=== PATIENT | female | born 1945 | race Caucasian/White ===

== ENCOUNTER 2019-10-20 12:42 | Outpatient (CLI) | payer MEDICARE, OTHER, SELFPAY ==
--- NOTE | 2019-10-20 12:50 | CT_ITS ---
WS: [id number] CT CHEST WITH INTRAVENOUS CONTRAST HISTORY: LYMPHADENOPATHY TECHNIQUE: Contiguous 5 mm axial imaging performed on the thorax. Coronal and sagittal reformats are submitted. All CT scans at [facility] use at least one of these dose optimization techniq ues: automated exposure control; mA and/or kV adjustment per patient size (includes targeted exams wh ere dose is matched to clinical indication); or iterative reconstruction. CONTRAST: Omnipaque 300; 95 mL IV. DLP: 602.05 mGycm COMPARISON: 06/26/2019 Lungs and central airway: Mild pulmonary hyperinflation. Linear scar in the LEFT upper lobe and at th e RIGHT lung base. Again noted is a 6.9 mm noncalcified rounded soft tissue nodule at the LEFT lung b ase which is unchanged since 02/27/2019. No new nodule. Pleura: Normal. No pleural effusion. Heart and pericardium: Normal size heart. No pericardial effusion. Mediastinum and gonsalo: No enlarged lymph nodes. Largest lymph node at the RIGHT hilum measures 7.2 mm. Vessels: Moderate atherosclerosis thoracic aorta. No aneurysm. Pulmonary artery size is equal to the aorta. Chest wall and lower neck: No soft tissue masses. Upper abdomen: Small hiatal hernia. Prior cholecystectomy. The entire liver is not included on this s tudy but it does appear to be enlarged. No bile duct dilatation. Stable 8 mm nodule associated with t he LEFT adrenal gland. No change since 02/27/2019. Osseous structures: Increase in thoracic kyphosis. CT/CT chest w con* [id number] IMPRESSION: 1. Stable 6.9 mm noncalcified round soft tissue nodule at the LEFT lung base. No change since 02/27/2019. Recommend [address] follow-up to document co ntinued stability. 2. LEFT adrenal nodule measures 8 mm. With no history of malignancy statistica lly this is likely benign. 3. Chronic emphysema. 4. Moderate atherosclerosis aorta. 5. Prior cholecystectomy.
[2019-10-20 13:30] LABS: Blood Urea Nitrogen 10 mg/dL (8-23)
[2019-10-20] MEDS: iohexol 300 mg/mL 100 mL Btl IV (13:48)
== END 2019-10-20 12:43 | disposition home or self-care (01) ==
PROVIDERS: Internal Medicine Cardiovascular Disease; Family Provider Internal Medicine; PCP Internal Medicine; Referring Provider Internal Medicine; Visit Provider Thoracic Surgery (Cardiothoracic Vascular Surgery)
DX: J43.9 Emphysema, unspecified (principal); I70.0 Atherosclerosis of aorta; E27.9 Disorder of adrenal gland, unspecified; R59.1 Generalized enlarged lymph nodes; R91.1 Solitary pulmonary nodule; Z90.49 Acquired absence of other specified parts of digestive tract
CPT/HCPCS: 71260; 82565; 84520; Q9967

== ENCOUNTER 2019-10-29 08:41 | Outpatient (CLI) | payer MEDICARE, OTHER, SELFPAY ==
--- NOTE | 2019-10-29 09:00 | CT_ITS ---
WS: [id number] CTA ABDOMINAL AORTA WITH RUNOFF TECHNIQUE: Contrast enhanced CTA of the abdominal aorta with bilateral lower extremity runoff. Multip lanar reformatted images were obtained. MIP reformats were also reviewed. CLINICAL INFORMATION: Lifestyle limiting claudication, severely depressed SERGEY COMPARISON: None. DLP: 1313.[address] scans at [facility] use at least one of these dose optimization techniques: automat ed exposure control; mA and/or kV adjustment per patient size (includes targeted exams where dose is matched to clinical indication); or iterative reconstruction. FINDINGS: Moderate atheromatous disease abdominal aorta. Celiac and SMA are patent at the origins. Mild calcifi cation of the renal artery origins. Normal renal parenchymal enhancement. Cholecystectomy clips. Port al vein and splenic vein are patent. Adrenal glands are normal. Small esophageal hiatal hernia. Surgi estelle sutures at the cecum. Prior hysterectomy. RIGHT: Right common iliac artery is patent with moderate calcification. External and internal iliac a rteries are patent. Right common femoral artery is patent. Superficial femoral artery and deep femora l arteries are patent. No significant femoral artery stenosis. Popliteal artery is patent with no sig nificant stenosis. Normal 3 vessel runoff to the ankle. LEFT: Moderate calcification left common iliac artery which is patent. External iliac artery is paten t. Heavily calcified internal iliac artery which is occluded proximally with some flow distally. Comm on femoral artery is patent. Superficial femoral artery and deep femoral arteries are patent. Poplite al artery is patent. Normal 3 vessel runoff to the ankle. CT/CT angio abd aorta runof [id number] IMPRESSION: 1. Moderate calcification both common iliac arteries which remain patent. 2. No significant femoral artery or popliteal artery stenosis. 3. Normal 3 vessel runoff to the ankle bilaterally. 4. Left internal iliac artery is occluded proximally and reconstitutes distall y. 5. Normal caliber abdominal aorta with moderate atheromatous disease.
[2019-10-29] MEDS: iohexol 350 mg/mL 100 mL Btl IV (09:07)
== END 2019-10-29 08:42 | disposition home or self-care (01) ==
LOC: RADWPI 08:48
PROVIDERS: Family Provider Internal Medicine; PCP Internal Medicine; Visit Provider Internal Medicine Cardiovascular Disease
DX: I70.212 Atherosclerosis of native arteries of extremities with intermittent claudication, left leg (principal)
CPT/HCPCS: 75635; Q9967

== ENCOUNTER 2020-01-19 09:15 | Outpatient (CLI) | payer MEDICARE, OTHER, SELFPAY ==
--- NOTE | 2020-01-19 09:21 | MM_ITS ---
WS: [id number] BILATERAL DIGITAL DIAGNOSTIC MAMMOGRAM MAMMOGRAPHY WITH CAD CLINICAL INFORMATION: SUBCUTANEOUS NODULE OF BREAST. Bilateral breast lumps left 7:00 position and ri ght 9:00 position. Bilateral breast soreness. COMPARISON: September 07, 2019 TECHNIQUE: Bilateral CC, MLO, and ML views. FINDINGS: Scattered fibroglandular densities bilaterally. No mammographic abnormalities deep to the palpable marker left or right breast. A few tiny punctate c alcifications. Bilateral breast ultrasound is pending. ULTRASOUND BREAST BILATERAL TECHNIQUE: Ultrasound bilateral breast focused area of concern. CLINICAL INFORMATION: SUBCUTANEOUS NODULE OF BREAST FINDINGS: Ultrasound right breast at the 4 to 9:00 position. Ultrasound left breast at the 3 to 7:00 position. No evidence of pathologic mass or lesion. Normal underlying breast tissue. No lesions to target for b iopsy. MM/[place] [id number] IMPRESSION: BI-RADS: 2-Benign FOLLOW UP: 1 Year Follow-up Recommend return to annual screening mammography.
--- NOTE | 2020-01-19 09:33 | US_ITS ---
WS: [id number] BILATERAL DIGITAL DIAGNOSTIC MAMMOGRAM MAMMOGRAPHY WITH CAD CLINICAL INFORMATION: SUBCUTANEOUS NODULE OF BREAST. Bilateral breast lumps left 7:00 position and ri ght 9:00 position. Bilateral breast soreness. COMPARISON: September 07, 2019 TECHNIQUE: Bilateral CC, MLO, and ML views. FINDINGS: Scattered fibroglandular densities bilaterally. No mammographic abnormalities deep to the palpable marker left or right breast. A few tiny punctate c alcifications. Bilateral breast ultrasound is pending. ULTRASOUND BREAST BILATERAL TECHNIQUE: Ultrasound bilateral breast focused area of concern. CLINICAL INFORMATION: SUBCUTANEOUS NODULE OF BREAST FINDINGS: Ultrasound right breast at the 4 to 9:00 position. Ultrasound left breast at the 3 to 7:00 position. No evidence of pathologic mass or lesion. Normal underlying breast tissue. No lesions to target for b iopsy. US/US breast BI limited* [id number] IMPRESSION: BI-RADS: 2-Benign FOLLOW UP: 1 Year Follow-up Recommend return to annual screening mammography.
== END 2020-01-19 09:16 | disposition home or self-care (01) ==
LOC: RADSHAW 09:15
PROVIDERS: Family Provider Internal Medicine; PCP Internal Medicine; Visit Provider Internal Medicine
DX: N63.24 Unspecified lump in the left breast, lower inner quadrant (principal); N63.13 Unspecified lump in the right breast, lower outer quadrant
CPT/HCPCS: 76642; 77066

== ENCOUNTER 2020-07-31 18:57 | Inpatient (IN) | payer MEDICARE, OTHER, SELFPAY ==
[2020-07-31] VITALS (54 sets, daily range): BP systolic 61–125; BP diastolic 42–88; PULSE 55–168; RESP 15–46; TEMP 36.9–37.1; O2SAT 86–95; BMI 26.7
--- NOTE | 2020-07-31 19:35 | CTR_ITS ---
PROCEDURE INFORMATION: Exam: CT Head Without Contrast Exam date and time: 07/31/2020 10:54 PM Age: 74 years old Clinical indication: Pain; Headache not specified; Patient HX: Covid+ C/O COYLE TECHNIQUE: Imaging protocol: Computed tomography of the head without contrast. Radiation optimization: All CT scans at this facility use at least one of these dose optimization techniques: automated exposure control; mA and/or kV adjustment per patient size (includes targeted exams where dose is matched to clinical indication); or iterative reconstruction. COMPARISON: No relevant prior studies available. RADIATION DOSE METRICS: Total DLP (mGy-cm): 734.98 FINDINGS: Brain: Pontine couple small punctate calcifications. Diffuse mild cerebral age related volume loss. Mild patchy low attenuation in the white matter compatible with mild chronic small vessel ischemic disease. No midline shift, mass, fluid collection, or evidence of hemorrhage. Cerebral ventricles: Ventricular enlargement proportional to volume loss. Bones/joints: Unremarkable. No acute fracture. Paranasal sinuses: Visualized sinuses are unremarkable. No fluid levels. Mastoid air cells: Visualized mastoid air cells are well aerated. Soft tissues: Unremarkable. CT/CT head wo con* [id number] IMPRESSION: Mild involutional changes, no acute intracranial abnormality. Radiation Dose CTDIVOL = (mGy): DLP = 734.98 (mGy-cm)
--- NOTE | 2020-07-31 19:35 | XR_ITS ---
WS: [id number] Exam: XR chest 1V portable [id number] Date/Time of Exam: 07/31/2020 7:59 PM Reason For Exam: COVID+, hypoxia comparison 05/08/2019. There are patchy pneumonic infiltrates in both lower lung zone suspicious for pneumonia. Normal heart size. The mediastinum and bony thorax are intact. The lungs are hyperinflated which may indicate POLE CLASSIFIER D. There are superimposed chronic changes also noted in the lower lung zones. XR/XR chest 1V portable [id number] IMPRESSION: 1. Pneumonic infiltrates in the bilateral lower lung zones with superimposed ch ronic changes. 2. Pulmonary hyperinflation which may indicate COPD.
[2020-07-31 19:54] LABS: Basophils % 0.2 %; Hematocrit 38.6 % (37.0-47.0); Hemoglobin 12.7 g/dL (11.5-15.3); Lymphocytes # 0.6 10^3/uL (0.8-4.8); Lymphocytes % 11.6 %; Mean Corpuscular HGB Conc 32.9 g/dL (30.0-36.0); Mean Corpuscular Hemoglobin 29.4 pg (28.0-34.0); Mean Corpuscular Volume 89.4 fL (81-99); Mean Platelet Volume 11.5 fL (7.4-10.4); Monocytes # 0.2 10^3/uL (0.2-0.9); Monocytes % 2.8 %; Neutrophils # 4.61 10^3/uL (1.8-7.7); Nucleated Red Blood Cells % 0 %; Platelet Count 144 10^3/cmm (130-400); Red Blood Count 4.32 10^6/uL (4.1-5.3); Red Cell Distribution Width 14.1 % (12.1-15.1); White Blood Count 5.4 10^3/uL (4.0-10.0)
[2020-07-31 20:00] LABS: Fibrinogen 513 mg/dL (174-498)
[2020-07-31 20:03] LABS: D Dimer 1.25 ug/mIFEU (0-0.59)
[2020-07-31 20:06] LABS: Lactic Sepsis W/Reflex 1.3 mmol/L (0.5-2.2)
[2020-07-31 20:08] LABS: Troponin T (5th) Once 28 ng/L (0-10)
[2020-07-31 20:15] LABS: Procalcitonin 0.36 ng/mL (0-0.5)
[2020-07-31] MEDS: sodium chloride 0.9% 1,000 ML 999 ML IV ×2 (20:20→20:36)
[2020-07-31 20:26] LABS: Alanine Aminotransferase 127 U/L (0-33); Albumin Level 3.3 g/dL (3.5-5.2); Alkaline Phosphatase 140 IU/L (35-105); Aspartate Amino Transferase 147 U/L (0-32); Blood Urea Nitrogen 28 mg/dL (8-23); C Reactive Protein 35.1 mg/L (0.0-4.9); Calcium 7.3 mg/dL (8.5-10.5); Carbon Dioxide 14 mmol/L (22-29); Chloride 98 mmol/L (98-107); Globulin 2.4 g/dL (1.3-4.6); Glucose 125 mg/dL (65-115); Lactate Dehydrogenase 445 U/L (135-214); Osmolality Calculated 283 mOsm/kg (285-295); Sodium 133 mmol/L (136-145); Total Bilirubin 0.3 mg/dL (0.15-1.2); Total Protein 5.7 g/dL (6.6-8.7)
[2020-07-31 20:57] LABS: Urine Color Yellow (Yellow); pH Urine 5 (5-7)
[2020-07-31 20:58] LABS: Bilirubin Urine Neg (Negative); Blood Urine Trace (Negative); Glucose Urine UA Norm (Normal); Ketones Urine Negative (Negative); Leukocyte Esterase Urine Trace (Negative); Nitrate Urine Negative (Negative); Protein Urine Neg (Negative); Urobilinogen Urine Norm (Negative)
[2020-07-31 20:59] LABS: Add Urine Culture? No; Bacteria Urine 3+ /hpf; Hyaline Casts Urine 0-4 /lpf; Mucus Urine 1+ /hpf; Squamous Epithelial Cell Urine 25-40 /hpf (0-5); WBC Urine 25-40 /hpf (0-5)
[2020-07-31] MEDS: calcium gluconate 0.1 gm/mL 10% SDV 10mL 1 GM IVP (21:20)
[2020-07-31] MEDS: sodium chloride 0.9% 1,000 ML 100 ML IV (21:35)
--- NOTE | 2020-07-31 21:40 | PM.HP ---
Providers/Chief Complaint Primary Care Provider: Roge Escobar DO Chief Complaint: COVID History of Present Illness Emili Bueno is a 74 year old female who was recently started on cilostazol for intermittent claudication symptoms, tested positive for Covid on Saturday came in with worsening of fatigue. Patient is stating that for last 1 week she has been experiencing loose stools, 2-3 episodes of emesis, her p.o. intake has been decreasing, she is feeling extremely lethargic and fatigued with some dyspnea on exertion. She has not checked her pulse ox at home, she is denying fever, chest pain, dysuria. She has been compliant with her medications including lisinopril in last 1 week despite diarrhea vomiting and low p.o. intake. Because of worsening of her symptoms she decided to come to the hospital for further evaluation. When EMS evaluated her she was 84% on room air, she was saturating well 4 L nasal cannula 94% when she arrived in the ER, initially she was hypotensive with tachyarrhythmia, atrial fibrillation with RVR, AV edis blocking agent which were given via IV did not help her heart rate, decision was made to cardiovert her, she was cardioverted in the ER by Dr. Mahoney, post cardioversion heart rate dropped to 60s, she still hypotensive with low 90s, she is saturating well on 4 L nasal cannula at the time of my interview, she is awake, alert, A. fib slow ventricular response alternating with sinus bradycardia, does not have previous history of sick sinus syndrome. Diagnostics in the ER revealed BNP 584, abnormal transaminases, high inflammatory markers, normal procalcitonin, x-ray shows bilateral infiltrates, normal lactic acid, CHARLY, hyponatremia, hypokalemia I will check ketones for metabolic acidosis, blood sugar 125, high D-dimer Review of Systems Const: Reports: chills, body aches, change in appetite, fatigue and malaise Eyes: Denies: change in vision ENMT: Denies: throat pain Card: Reports: dyspnea on exertion; Denies: chest pain Resp: Reports: dyspnea and non-productive cough GI: Reports: nausea and diarrhea; Denies: abdominal pain : Denies: flank pain or difficulty voiding Musc: Denies: neck pain Skin/Breast: Denies: rash Neuro: Denies: headache(s) or weakness in extremities Psych: Reports: anxiety Endo: Denies: polyuria Alberto/Lymph: Denies: easy bruising All/Imm: Denies: urticaria Medications/Allergies Home Medications Medication Instructions Recorded Confirmed Last Taken Type budesonide-formoterol HFA 80 2 puff INHALATION BID 10/12/19 03/11/20 Unknown History mcg-4.5 mcg/actuation aerosol inhaler colestipol 1 gram tablet 1 gm PO ONCE 10/12/19 03/11/20 Unknown History lisinopril 40 mg tablet 40 mg PO ONCE 10/12/19 03/11/20 Unknown History methimazole 5 mg tablet 5 mg PO ONCE 10/12/19 03/11/20 Unknown History montelukast 10 mg tablet 10 mg PO ONCE 10/12/19 03/11/20 Unknown History cilostazol 50 mg tablet 50 mg PO BID 10/15/19 03/11/20 Unknown History Allergies Allergy/AdvReac Type Severity Reaction Status Date / Time No Known Allergies Allergy Unverified 07/31/20 19:07 PFSH Acute PFSH: Medical History Atherosclerosis of leg with intermittent claudication Cholecystectomy planned COPD (chronic obstructive pulmonary disease) FHx: cholecystectomy Hypertension Hypertension Irritable bowel syndrome Lymphadenopathy Nicotine dependence PVD (peripheral vascular disease) Moderate as per SERGEY, on cilostazol, medical manage Thyroid disorder On methimazole Surgical History H/O: hysterectomy History of gastric surgery Family History Other Dementia Diabetes Hypertension Social History Smoking and tobacco status: current every day smoker Alcohol intake: never Substance/Drug Use: never Housing: House Vitals/I&O/Wt Last Vital Signs Temp 98.8 F 07/31/20 19:02 Pulse 168 H 07/31/20 21:25 Resp 34 H 07/31/20 21:25 BP 104/55 07/31/20 21:25 Pulse Ox 94 07/31/20 21:25 07/31/20 07/31/20 07/31/20 06:59 14:59 22:59 Intake Total 1000 / 1000 Balance 1000 / 1000 Weight last 48 hrs Weight 70.76 kg Physical Exam Narrative: EXAM NARRATIVE: Appears comfortable, laying flat in her bed Elderly female Appears dehydrated Saturating well on 4 L cannula I have titrated down to 2 L No acute respiratory distress Sinus bradycardia alternating with variable rhythm heart rate in 60s Systolic blood pressure in low 90s Awake alert oriented x3 GCS 15, no neurological deficit Abdomen soft, nontender, no abdominal pain Lower extremity nonpitting edema left leg greater than right Skin does not show any ischemia gangrene or ulcer Appropriate mood and affect Data : 07/31/20 19:16 07/31/20 19:16 A&P Assessment and plan (1) Tachyarrhythmia: Status: Acute (2) Atrial fibrillation with RVR: Status: Acute (3) Hypotensive episode: Status: Acute (4) CHARLY (acute kidney injury): Status: Acute (5) Metabolic acidosis: Status: Acute (6) Dehydration: Status: Acute (7) Hypokalemia: Status: Acute (8) Hyponatremia: Status: Acute Additional A&P Information Acute onset A. fib with RVR Status post electrical cardioversion x1 in the ER with conversion to A. fib with slow ventricular response alternating with sinus bradycardia No active chest pain, troponin 28 Current heart rate in the 60s, current systolic blood pressure in low 90s Cardizem drip has been turned off Check TSH, mag chadvasc 4 hasbled 2 Monitor for sick sinus syndrome, telemetry monitoring, I would start heparin drip for anticoagulation Echo in the morning Acute hypoxic respiratory failure due to COVID-19 Start dexamethasone and remdesivir Currently I have titrated down her nasal cannula oxygenation from 4 L to 2 L No acute respiratory distress, chest x-ray showing bilateral infiltrates right greater than left, procalcitonin normal, avoid antibiotics for now Abnormal D-dimer Considering tachyarrhythmia and COVID-19 infection I would start her on heparin drip, not a candidate to be on Eliquis because of high creatinine I concern is high for a pulmonary embolism We will check venous Dopplers in the morning Hypokalemic, hyponatremic acidosis Dehydration High anion gap acidosis, lactic acid normal, will check ketones level Potassium repleted Normal saline maintenance rate overnight Abnormal BMP Clinically patient looks dehydrated, abnormal transaminases We will check echo in the morning to rule out congestive heart failure Currently I am starting fluids because of dehydration Abnormal transaminases could be secondary to COVID-19 infection Hyperthyroidism: Patient is taking methimazole 5 mg daily which I would hold for now, check free T4 Full code Cardiac diet DVT prophylaxis not needed currently on heparin drip Attestations Medical Necessity Statement*: Anticipating stay in the hospital cross more than 2 midnights secondary to tachyarrhythmia and COVID-19 worsening symptoms Time Spent in Patient Care: (>than 50% of time spent in counselling and/or direct pt care on unit). 40mins Coding Level of Care Code Acute Financial Aid Coordinator for Chg Fwd Diagnoses Tachyarrhythmia R00.0 Atrial fibrillation with RVR I48.91 Hypotensive episode I95.9 CHARLY (acute kidney injury) N17.9 Metabolic acidosis E87.2 Dehydration E86.0 Hypokalemia E87.6 Hyponatremia E87.1
[2020-07-31] MEDS: midazolam 1 mg/mL INJ 2 mL IVP (21:48)
--- NOTE | 2020-07-31 22:06 | PC.NURSE ---
PATIENT FAMILY UPDATED ON PATIENT CARE PLAN.
[2020-07-31 22:40] LABS: NT Pro B Type Natriuretic Pept 584 pg/mL (0-125)
--- NOTE | 2020-07-31 23:47 | W.ED.COVID ---
HPI - COVID General: Chief Complaint: COVID symptoms Stated Complaint: COVID+/SOB Time Seen by Provider: 07/31/20 19:12 Source: patient Mode of arrival: EMS Limitations: no limitations Triage information: Has fever, cough or shortness of breath. Exposure to COVID + person last 14 days History of Present Illness: HPI Narrative: Patient is a 74-year-old female who tested positive for COVID-19 about 7 days ago. The patient states that she has been doing well since and her only real complaint had been generalized weakness. Today she had a headache in the occipital region as well as a generalized weakness. When she was checking her oxygen saturation oxygen saturation was in the 80s. She still did not feel short of breath with these. She then called for an ambulance and the EMS crew said that her oxygen saturation was 86% on room air when they arrived. She was therefore brought here for evaluation. MD complaint: known COVID positive COVID 19 common symptoms: positive cough, non-productive cough, dyspnea (mild), fatigue, headache(s) and nausea; negative fever(s), chills, productive cough, body aches, loss of sense of smell and/or taste, throat pain, nasal congestion, vomiting or diarrhea COVID 19 other sytmptoms: positive requiring oxygen (now); negative chest pressure, chest pain, pleuritic pain, respiratory distress, cyanosis, lethargy, confusion or new neurological complaints Onset (ago): week(s) (1) Pertinent comorbid conditions: hypertension and COPD/respiratory disease Treatment prior to arrival: oxygen COVID Results: No Data to Display Review of Systems General: Reports: 10 or more systems reviewed and unremarkable except in HPI and below Const: Reports: fatigue; Denies: fever(s), chills or body aches Eyes: Denies: change in vision or blurry vision ENMT: Denies: throat pain or nasal congestion Card: Denies: chest pain Resp: Reports: dyspnea (mild) and non-productive cough; Denies: productive cough GI: Reports: nausea; Denies: vomiting or diarrhea : Denies: flank pain, difficulty voiding, dysuria, urinary frequency, urinary urgency or urinary hesitancy Musc: Denies: neck pain, back pain or extremity swelling Skin/Breast: Denies: rash, pruritus or erythema Neuro: Reports: headache(s); Denies: confusion Endo: Denies: polyuria, polydipsia or tired all the time PFSH ED PFSH: Medical History (Reviewed 07/31/20 @ 23:53 by Nhung Mahoney MD[place] [facility] [place] Atherosclerosis of leg with intermittent claudication Cholecystectomy planned COPD (chronic obstructive pulmonary disease) FHx: cholecystectomy Hypertension Hypertension Irritable bowel syndrome Lymphadenopathy Nicotine dependence PVD (peripheral vascular disease) Moderate as per SERGEY, on cilostazol, medical manage Thyroid disorder On methimazole Surgical History (Reviewed 07/31/20 @ 23:53 by hNung Mahoney MD, [facility] [place] H/O: hysterectomy History of gastric surgery Family History (Reviewed 07/31/20 @ 23:53 by Nhung Mahoney MD[place] [facility] [place] Other Dementia Diabetes Hypertension Social History (Reviewed 07/31/20 @ 23:53 by Nhung Mahoney MD, [facility] [place] Smoking and tobacco status: current every day smoker Alcohol intake: never Substance/Drug Use: never Housing: House Physical Exam Const: COMMON NORMALS: no acute distress, average body habitus, patient oriented x3, no limitations, healthy appearing, alert and well nourished HENMT: COMMON NORMALS: normocephalic, atraumatic and moist oral mucous membranes HEAD & SCALP: normocephalic and atraumatic Eye: COMMON NORMALS: Equal, round and reactive pupils present, EOMs intact bilaterally, conjunctivae normal and no scleral icterus CONJUNCTIVA: Yes conjunctivae normal PUPIL: Yes Equal, round and reactive pupils present Neck/C-Spine: COMMON NORMALS: full ROM, supple, no meningeal signs, no JVD and No carotid bruits Resp: COMMON NORMALS: normal respiratory effort, No retractions, No use of accessory muscles, clear to auscultation bilaterally and percussion normal AUSCULTATION: clear to auscultation bilaterally PERCUSSION: percussion normal Cardio: COMMON NORMALS: no JVD, regular rate, regular rhythm, S1 normal heart sound present, S2 normal heart sound present, No gallops present (Cardio), No clicks present (Cardio), No murmurs present (Cardio), No rub (Cardio) and Peripheral pulses 2+ throughout RATE: regular rate RHYTHM: regular rhythm HEART SOUNDS: S1 normal heart sound present and S2 normal heart sound present PERIPHERAL PULSES: Peripheral pulses 2+ throughout GI: COMMON NORMALS: Normal to inspection, nondistended, normoactive bowel sounds present, Soft to palpation, non-tender, No hepatosplenomegaly present, no masses and no bruits PALPATION: Yes Soft to palpation and Yes No hepatosplenomegaly present Extremity: COMMON NORMALS: normal to inspection, full ROM, capillary refill normal, no calf tenderness and no pedal edema Neuro: COMMON NORMALS: patient oriented x3 SENSORIUM/ORIENTATION: Yes alert MENINGEAL SIGNS: Yes no meningeal signs Skin: COMMON NORMALS: no rashes or lesions noted, no wounds, turgor normal, no jaundice, no petechiae and no mottling GENERAL SKIN EXAM: no rashes or lesions noted and turgor normal Procedures Procedural Sedation Indication: other (Cardioversion) Preparation: media marketing coordinator applied, pulse oximeter, supplemental O2 applied, suction/airway equipment at bedside and IV secured Midazolam: IV Midazolam dose (mg): 1 IV Etomidate dose (mg): 7 Patient Tolerated Procedure: well and no complications Complications: none Additional Comments: No complications Course ED course: 74-year-old female patient who was brought into the emergency department secondary to hypoxia from COVID-19 infection. While in the emergency department she went into A. fib with RVR and became hypotensive. She does not have a prior history of A. fib. She did not respond to bolus and continuous infusion of diltiazem and because of persistent hypotension she was electrically cardioverted with a single synchronized shock at 150 J. She was premedicated with 7 mg of etomidate and 1 mg of midazolam. Cardioversion was successful. The patient was admitted to the viral ICU for further evaluation and management. Consultations: Consultation #1: Dr. Jackson, hospitalist. He kindly accepted the patient to his [facility]. Vital Signs: Vital signs: Vital Signs Temperature 98.8 F 07/31/20 19:02 Pulse Rate 65 07/31/20 22:46 Respiratory Rate 17 07/31/20 22:46 Blood Pressure 106/51 07/31/20 22:46 Pulse Oximetry 93 07/31/20 22:46 MDM - COVID MDM Narrative Medical decision making narrative: 74-year-old female patient with a recent diagnosis of COVID-19 infection who presented to the emergency department with complaints of hypoxia. In the emergency department she went into A. fib with RVR that was resistant to multiple doses of diltiazem as well as infusion of diltiazem. Because she was hypotensive persistently a decision was made to cardiovert her and she was successfully cardioverted. Patient is admitted to the viral ICU for further evaluation and management. Medical Records Attestation: I reviewed the patient's medical records. Lab Data Attestation: I reviewed the patient's lab results. Result diagrams: 07/31/20 19:16 07/31/20 19:16 Labs: Lab Results 07/31/20 07/31/20 07/31/20 Range/Units 19:16 19:16 19:16 WBC 5.4 (4.0-10.0) 10^3/uL RBC 4.32 (4.1-5.3) 10^6/uL Hgb 12.7 (11.5-15.3) g/dL Hct 38.6 (37.0-47.0) % MCV 89.4 (81-99) fL MCH 29.4 (28.0-34.0) pg MCHC 32.9 (30.0-36.0) g/dL RDW 14.1 (12.1-15.1) % Plt Count 144 (130-400) 10^3/cmm MPV 11.5 H (7.4-10.4) fL Neut % (Auto) 85.0 % Lymph % (Auto) 11.6 % Marin % (Auto) 2.8 % Eos % (Auto) 0.0 % Baso % (Auto) 0.2 % Neut # (Auto) 4.61 (1.8-7.7) 10^3/uL Lymph # (Auto) 0.6 L (0.8-4.8) 10^3/uL Marin # (Auto) 0.2 (0.2-0.9) 10^3/uL Eos # (Auto) 0.0 (0.0-0.8) 10^3/uL Baso # (Auto) 0.0 (0.0-0.1) 10^3/uL Nucleated RBC % (auto) 0 % Nucleated RBCs # 0.0 /100WBC Fibrinogen 513 H (174-498) mg/dL D-Dimer 1.25 H (0-0.59) ug/mIFEU Sodium 133 L (136-145) mmol/L Potassium 3.0 L (3.5-5.1) mmol/L Chloride 98 (98-107) mmol/L Carbon Dioxide 14 L (22-29) mmol/L Anion Gap 24.0 H (5-19) BUN 28 H (8-23) mg/dL Creatinine 1.9 H (0.5-0.9) mg/dL GFR Calculation Not Reportable Glucose 125 H (65-115) mg/dL Calculated Osmolality 283 L (285-295) mOsm/kg Lactic Acid (0.5-2.2) mmol/L Calcium 7.3 L (8.5-10.5) mg/dL Total Bilirubin 0.3 (0.15-1.2) mg/dL AST 147 H (0-32) U/L ALT 127 H (0-33) U/L Alkaline Phosphatase 140 H (35-105) IU/L Lactate Dehydrogenase 445 H (135-214) U/L Troponin T Gen 5 ng/L (0-10) ng/L C-Reactive Protein 35.1 H (0.0-4.9) mg/L NT-Pro-B Natriuret Pep (0-125) pg/mL Total Protein 5.7 L (6.6-8.7) g/dL Albumin 3.3 L (3.5-5.2) g/dL Globulin 2.4 (1.3-4.6) g/dL Procalcitonin 0.36 (0-0.5) ng/mL Urine Color (Yellow) Urine Appearance (CLEAR) Urine pH (5-7) Ur Specific [place] (1.005-1.030) Urine Protein (Negative) Urine Glucose (UA) (Normal) Urine Ketones (Negative) Urine Blood (Negative) Urine Nitrate (Negative) Urine Bilirubin (Negative) Urine Urobilinogen (Negative) mg/dL Ur Leukocyte Esterase (Negative) Urine RBC (0-2) /hpf Urine WBC (0-5) /hpf Ur Squamous Epith Cells (0-5) /hpf Amorphous Sediment Urine Bacteria (NONE) /hpf Hyaline Casts /lpf Urine Mucus /hpf 07/31/20 07/31/20 07/31/20 Range/Units 19:16 19:16 19:16 WBC (4.0-10.0) 10^3/uL RBC (4.1-5.3) 10^6/uL Hgb (11.5-15.3) g/dL Hct (37.0-47.0) % MCV (81-99) fL MCH (28.0-34.0) pg MCHC (30.0-36.0) g/dL RDW (12.1-15.1) % Plt Count (130-400) 10^3/cmm MPV (7.4-10.4) fL Neut % (Auto) % Lymph % (Auto) % Marin % (Auto) % Eos % (Auto) % Baso % (Auto) % Neut # (Auto) (1.8-7.7) 10^3/uL Lymph # (Auto) (0.8-4.8) 10^3/uL Marin # (Auto) (0.2-0.9) 10^3/uL Eos # (Auto) (0.0-0.8) 10^3/uL Baso # (Auto) (0.0-0.1) 10^3/uL Nucleated RBC % (auto) % Nucleated RBCs # /100WBC Fibrinogen (174-498) mg/dL D-Dimer (0-0.59) ug/mIFEU Sodium (136-145) mmol/L Potassium (3.5-5.1) mmol/L Chloride (98-107) mmol/L Carbon Dioxide (22-29) mmol/L Anion Gap (5-19) BUN (8-23) mg/dL Creatinine (0.5-0.9) mg/dL GFR Calculation Glucose (65-115) mg/dL Calculated Osmolality (285-295) mOsm/kg Lactic Acid 1.3 (0.5-2.2) mmol/L Calcium (8.5-10.5) mg/dL Total Bilirubin (0.15-1.2) mg/dL AST (0-32) U/L ALT (0-33) U/L Alkaline Phosphatase (35-105) IU/L Lactate Dehydrogenase (135-214) U/L Troponin T Gen 5 ng/L 28 H (0-10) ng/L C-Reactive Protein (0.0-4.9) mg/L NT-Pro-B Natriuret Pep 584 H (0-125) pg/mL Total Protein (6.6-8.7) g/dL Albumin (3.5-5.2) g/dL Globulin (1.3-4.6) g/dL Procalcitonin (0-0.5) ng/mL Urine Color (Yellow) Urine Appearance (CLEAR) Urine pH (5-7) Ur Specific [place] (1.005-1.030) Urine Protein (Negative) Urine Glucose (UA) (Normal) Urine Ketones (Negative) Urine Blood (Negative) Urine Nitrate (Negative) Urine Bilirubin (Negative) Urine Urobilinogen (Negative) mg/dL Ur Leukocyte Esterase (Negative) Urine RBC (0-2) /hpf Urine WBC (0-5) /hpf Ur Squamous Epith Cells (0-5) /hpf Amorphous Sediment Urine Bacteria (NONE) /hpf Hyaline Casts /lpf Urine Mucus /hpf 10/25/20 Range/Units 20:41 WBC (4.0-10.0) 10^3/uL RBC (4.1-5.3) 10^6/uL Hgb (11.5-15.3) g/dL Hct (37.0-47.0) % MCV (81-99) fL MCH (28.0-34.0) pg MCHC (30.0-36.0) g/dL RDW (12.1-15.1) % Plt Count (130-400) 10^3/cmm MPV (7.4-10.4) fL Neut % (Auto) % Lymph % (Auto) % Marin % (Auto) % Eos % (Auto) % Baso % (Auto) % Neut # (Auto) (1.8-7.7) 10^3/uL Lymph # (Auto) (0.8-4.8) 10^3/uL Marin # (Auto) (0.2-0.9) 10^3/uL Eos # (Auto) (0.0-0.8) 10^3/uL Baso # (Auto) (0.0-0.1) 10^3/uL Nucleated RBC % (auto) % Nucleated RBCs # /100WBC Fibrinogen (174-498) mg/dL D-Dimer (0-0.59) ug/mIFEU Sodium (136-145) mmol/L Potassium (3.5-5.1) mmol/L Chloride (98-107) mmol/L Carbon Dioxide (22-29) mmol/L Anion Gap (5-19) BUN (8-23) mg/dL Creatinine (0.5-0.9) mg/dL GFR Calculation Glucose (65-115) mg/dL Calculated Osmolality (285-295) mOsm/kg Lactic Acid (0.5-2.2) mmol/L Calcium (8.5-10.5) mg/dL Total Bilirubin (0.15-1.2) mg/dL AST (0-32) U/L ALT (0-33) U/L Alkaline Phosphatase (35-105) IU/L Lactate Dehydrogenase (135-214) U/L Troponin T Gen 5 ng/L (0-10) ng/L C-Reactive Protein (0.0-4.9) mg/L NT-Pro-B Natriuret Pep (0-125) pg/mL Total Protein (6.6-8.7) g/dL Albumin (3.5-5.2) g/dL Globulin (1.3-4.6) g/dL Procalcitonin (0-0.5) ng/mL Urine Color Yellow (Yellow) Urine Appearance Sl cloudy A (CLEAR) Urine pH 5 (5-7) Ur Specific [place] 1.010 (1.005-1.030) Urine Protein Neg (Negative) Urine Glucose (UA) Norm (Normal) Urine Ketones Negative (Negative) Urine Blood Trace H (Negative) Urine Nitrate Negative (Negative) Urine Bilirubin Neg (Negative) Urine Urobilinogen Norm (Negative) mg/dL Ur Leukocyte Esterase Trace H (Negative) Urine RBC 5-10 H (0-2) /hpf Urine WBC 25-40 H (0-5) /hpf Ur Squamous Epith Cells 25-40 H (0-5) /hpf Amorphous Sediment Not Reportable Urine Bacteria 3+ H (NONE) /hpf Hyaline Casts 0-4 H /lpf Urine Mucus 1+ /hpf COVID Results: No Data to Display Imaging Data CT Head: Attestation: I personally reviewed and interpreted this imaging study as follows: Radiologist's impression: [address] [address] [address] Scan Report Signed Patient: Emili Buenosapna #: [id number] : 6Acct#:[id number] Age/Sex: 74 / FADM Date: 07/31/20 [facility] [address]: Jaison Jackson MD Ordering Provider/Ordering MD: Nhung Mahoney MD[place] [facility] [place] Date of Service: 07/31/20 Procedure(s): CT head wo con* [id number] Accession Number(s): [id number] Report Number: [id number] PROCEDURE INFORMATION: Exam: CT Head Without Contrast Exam date and time: 07/31/2020 10:54 PM Age: 74 years old Clinical indication: Pain; Headache not specified; Patient HX: Covid+ C/O COYLE TECHNIQUE: Imaging protocol: Computed tomography of the head without contrast. Radiation optimization: All CT scans at this facility use at least one of these dose optimization techniques: automated exposure control; mA and/or kV adjustment per patient size (includes targeted exams where dose is matched to clinical indication); or iterative reconstruction. COMPARISON: No relevant prior studies available. RADIATION DOSE METRICS: Total DLP (mGy-cm): 734.98 FINDINGS: Brain: Pontine couple small punctate calcifications. Diffuse mild cerebral age related volume loss. Mild patchy low attenuation in the white matter compatible with mild chronic small vessel ischemic disease. No midline shift, mass, fluid collection, or evidence of hemorrhage. Cerebral ventricles: Ventricular enlargement proportional to volume loss. Bones/joints: Unremarkable. No acute fracture. Paranasal sinuses: Visualized sinuses are unremarkable. No fluid levels. Mastoid air cells: Visualized mastoid air cells are well aerated. Soft tissues: Unremarkable. CT/CT head wo con* [id number] IMPRESSION: Mild involutional changes, no acute intracranial abnormality. Radiation Dose CTDIVOL = (mGy): DLP = 734.98 (mGy-cm) Dictated By:Orville Redmond MD Signed By:Orville Redmond MDSigned Date/Time:07/31/202305 DD/ 04 CXR: Attestation: I personally reviewed and interpreted this imaging study as follows: My impression: Bilateral infiltrates EKG Data EKG 1: Attestation: I personally reviewed and interpreted this EKG as follows: EKG interpretation date: 07/31/20 EKG interpretation time: 20:02 Prior EKG tracings: not available for review Interpretation: Atrial fibrillation with RVR. Heart rate [address] depressions in V3, V4, V5, V6. Q waves in leads II, III and aVF. EKG 2: Attestation: I personally reviewed and interpreted this EKG as follows: EKG interpretation date: 07/31/20 EKG interpretation time: 21:54 Prior EKG tracings: available for review Interpretation: Sinus rhythm with marked sinus arrhythmia. Most of the rhythm though is atrial fibrillation. Heart rate [address] depression in leads V4 V5. This is a post cardioversion EKG. Critical Care Time Critical Care Time: Critical Care Time: Yes Total Critical Care Time: 60 Attestation: This case had a high probability of a clinically significant, sudden, or life threatening deterioration of this patient's condition which required my full and direct attention, intervention and personal management. Discharge Plan Discharge Patient Disposition: Admitted As Inpatient Admit Provider: Jaison Jackson Clinical Impression: Atrial fibrillation with RVR, CHARLY (acute kidney injury), Pneumonia due to 2019 novel coronavirus, Hypocalcemia, Atrial fibrillation, new onset Condition: Stable Interventions: ED Discharge Assessment Last Done: 07/31/20 22:46 ED Charges Last Done: 07/31/20 22:46 Discharge Date/Time: 07/31/20 23:05 Coding Level of Care Code ED Bedspread Cutter Hand for Janessa Torres
[2020-08-01] VITALS (227 sets, daily range): BP systolic 85–160; BP diastolic 38–84; PULSE 53–104; RESP 3–41; TEMP 36.6–37.8; O2SAT 86–100
[2020-08-01 00:01] LABS: Ketone (Acetest) Serum Negative (Negative)
[2020-08-01 00:12] LABS: SARS Covid-2 Antigen Positive (Negative)
[2020-08-01] MEDS: sodium chlor 0.9% + KCl 20 mEq 20 MEQ/1,000 ML BAG 30 MEQ IV ×2 (00:45→08:31)
[2020-08-01] MEDS: heparin 5,000 unit/mL INJ 1 mL IV (00:46)
[2020-08-01] MEDS: heparin drip 25,000 UNIT/500 ML PREMIX 20 UNIT IV (00:49)
[2020-08-01 01:21] LABS: Troponin T (5th) Once 34 ng/L (0-10)
[2020-08-01] MEDS: albuterol 8 gm MDI 2 PUFF INHALATION ×4 (03:00→16:06)
[2020-08-01 04:31] LABS: Basophils % 0.2 %; Hematocrit 38.1 % (37.0-47.0); Hemoglobin 12.2 g/dL (11.5-15.3); Lymphocytes # 0.9 10^3/uL (0.8-4.8); Lymphocytes % 15.7 %; Mean Corpuscular Hemoglobin 29.4 pg (28.0-34.0); Mean Corpuscular Volume 91.8 fL (81-99); Mean Platelet Volume 12.2 fL (7.4-10.4); Monocytes # 0.2 10^3/uL (0.2-0.9); Neutrophils # 4.57 10^3/uL (1.8-7.7); Neutrophils % 80.6 %; Nucleated Red Blood Cells % 0 %; Platelet Count 147 10^3/cmm (130-400); Red Blood Count 4.15 10^6/uL (4.1-5.3); Red Cell Distribution Width 14.4 % (12.1-15.1); White Blood Count 5.7 10^3/uL (4.0-10.0)
[2020-08-01 05:19] LABS: Slide Review Slide Review Perform
[2020-08-01 06:24] LABS: Blood Urea Nitrogen 24 mg/dL (8-23); C Reactive Protein 41.7 mg/L (0.0-4.9); Calcium 7.7 mg/dL (8.5-10.5); Carbon Dioxide 19 mmol/L (22-29); Chloride 106 mmol/L (98-107); Glucose 102 mg/dL (65-115); Osmolality Calculated 292 mOsm/kg (285-295); Sodium 139 mmol/L (136-145); Thyroid Stimulating Hormone 0.04 uIU/mL (0.27-4.20)
[2020-08-01 06:25] LABS: Anion Gap 17.2 (5-19); Free T4 Free Thyroxine 1.34 ng/dL (0.82-1.77); Potassium 3.2 mmol/L (3.5-5.1)
--- NOTE | 2020-08-01 07:00 | USCV_ITS ---
Emili Buneo Age: 74 Gender: F : 1945 Exam Date: 08/01/2020 06:20 Ordering Phys: Jaison Jackson MD Technologist: Tono Blakely Exam Location: [facility] [place] Indication: CHF BP: 122 / 84 HR: 67 Rhythm: Sinus Technical Quality: Adequate MEASUREMENTS (Male / Female) Normal Values 2D ECHO LV Diastolic Diameter PLAX 3.6 cm 4.2 - 5.9 / 3.9 - 5.3 cm LV Systolic Diameter PLAX 2.2 cm IVS Diastolic Thickness 1.2 cm 0.6 - 1.0 / 0.6 - 0.9 cm IVS Systolic Thickness 1.1 cm LVPW Diastolic Thickness 1.0 cm 0.6 - 1.0 / 0.6 - 0.9 cm LVPW Systolic Thickness 1.0 cm LVOT Diameter 2.1 cm LV Ejection Fraction 2D Teich 72.1 % LV Ejection Fraction MOD 2C 52.5 % LV Ejection Fraction 2C AL 50.6 % LA Diameter 3.1 cm LA Width 3.3 cm LA Height 5.0 cm RA Width 3.7 cm RA Height 4.1 cm Aorta at Sinotubular Diameter 1.3 cm M-MODE LV Diastolic Diameter MM 4.8 cm 4.2 - 5.9 / 3.9 - 5.3 cm LV Systolic Diameter MM 2.7 cm LV Ejection Fraction MM Teich 75.3 % IVS Diastolic Thickness MM 1.1 cm 0.6 - 1.0 / 0.6 - 0.9 cm IVS Systolic Thickness MM 1.6 cm LVPW Diastolic Thickness MM 1.2 cm 0.6 - 1.0 / 0.6 - 0.9 cm LVPW Systolic Thickness MM 1.7 cm RV Diastolic Diameter MM 2.1 cm Aortic Annulus Diameter 3.1 cm LA Ao Ratio MM 1.2 DOPPLER AV Peak Velocity 294.0 cm/s LVOT Peak Velocity 119.0 cm/s AV Area Cont Eq vti 1.7 cm squared AV Area Cont Eq pk 1.3 cm squared MV Area PHT 5.0 cm squared Mitral E to A Ratio 1.0 MV E' Velocity 56.0 cm/s Mitral E to MV E' Ratio 7.3 Mitral E to LV E' Lateral Ratio 8.2 Mitral E to LV E' Septal Ratio 6.6 TR Peak Velocity 257.0 cm/s TR Peak Gradient 26.4 mmHg TV Peak E Velocity 114.0 cm/s Right Atrial Pressure 3.0 mmHg Pulmonary Artery Systolic Pressu 29.4 mmHg FINDINGS Left Ventricle Normal left ventricular cavity size. Normal left ventricular systolic function. No regional wall motion abnormalities. Left ventricular ejection fraction is estimated at 65 %. Grade I/IV diastolic dysfunction (abnormal relaxation filling pattern), normal to mildly elevated filling pressures. Right Ventricle The right ventricle is normal in size and function. Right Atrium The right atrium is normal in size. Left Atrium The left atrium is normal in size. Mitral Valve Structurally normal mitral valve without significant stenosis or prolapse. There is no mitral regurgitation. Aortic Valve Severe aortic valve calcification. Moderate aortic valve stenosis, mean gradient 11.1 mmHg, STEVIE 1.7 cm squared. Trace aortic valve regurgitation. Tricuspid Valve Structurally normal tricuspid valve without significant stenosis or regurgitation. Pulmonary artery systolic pressure is normal. Pulmonic Valve Structurally normal pulmonic valve without significant stenosis. There is no pulmonic regurgitation. Pericardium Normal pericardium without effusion. Aorta Normal ascending aorta dimension. CONCLUSIONS 1-Normal left ventricular cavity size. Normal left ventricular systolic function. No regional wall motion abnormalities. Left ventricular ejection fraction is estimated at 65 %. Grade I/IV diastolic dysfunction (abnormal relaxation filling pattern), normal to mildly elevated filling pressures. 2-Severe aortic valve calcification. Moderate aortic valve stenosis, mean gradient 11.1 mmHg, STEVIE 1.7 cm squared. Trace aortic valve regurgitation. 3-There is no pericardial effusion. 4-Pulmonary artery systolic pressure is within normal limits. 5-Right atrial pressure is around 5 mm of mercury. 6-There are no prior echocardiogram studies to compare. Jaison Padilla MD (Electronically Signed) Final Date: 01 August 2020 17:36 S
--- NOTE | 2020-08-01 07:00 | USCV_ITS ---
Emili Bueno Age: 74 Gender: F : 1945 Exam Date: 08/01/2020 06:36 Ordering Phys: Jaison Jackson MD Technologist: Tono Blakely [place] [facility] [place]ication: BILAT EDEMA POS D DIMER HISTORY: Lower extremity swelling. PROCEDURES: Venous duplex imaging was performed in bilateral lower extremities. The venous duplex Doppler examination of both lower extremities was performed in the standard fashion. The following venous structures were evaluated: common femoral vein, profunda vein, proximal portion of the greater saphenous vein, superficial femoral vein, and the popliteal vein. FINDINGS: Normal 2-D Doppler and augmentation and compressibility throughout the lower extremity venous structures. Additional imaging through the proximal calf veins also reveals no thrombus. Limited evaluation of the greater saphenous vein is patent with no thrombus. CONCLUSIONS No DVT bilateral lower extremities. Dr. Hattie Curtis DO (Electronically Signed) Final Date: 01 August 2020 08:27 S
[2020-08-01] MEDS: dexamethasone 4 mg Tablet 6 MG PO (08:30)
--- NOTE | 2020-08-01 10:13 | PM.PN ---
Subjective Subjective: Interval history: Chart reviewed, HR controlled, cardioverted in ED, BP normal, noted low grade temp this AM (100.1F). K replaced IV, continues to have loose stools, headache. Appears to be quite fatigued and has spent much of the day resting in bed. Minimal appetite. Medications: Reviewed: Yes Medication Review Details: Active Medications Generic Name Dose Route Start Last Admin Trade Name Freq PRN Reason Stop Dose Admin Albuterol Sulfate 2 puff 07/31/20 23:32 08/01/20 08:37 Ventolin INHALATION 2 puff Q4H.RESPIRATORY P RN Administration SHORTNESS OF JOSE TH Dexamethasone 6 mg 08/01/20 09:00 08/01/20 08:30 Decadron PO 6 mg DAILY YOSEF Administration Heparin Sodium (Be ef Lung) 0 unit 07/31/20 23:32 Heparin IV PRN PRN Heparin weight-ba se protocol Protocol Diltiazem HCl 125 mg/ Sodium 125 mls @ 0 mls/h r 07/31/20 20:45 07/31/20 21:40 Chloride IV 0 mg/hr .Q0M YOSEF 0 mls/hr Titration Protocol Per Protocol Sodium Chloride 1,000 mls @ 100 m ls/hr 07/31/20 21:30 07/31/20 21:35 Sodium Chloride 0.9% IV 100 mls/hr .Q10H YOSEF Administration Potassium Chloride /Sodium Chloride 20 meq in 1,000 m ls @ 30 mls/hr 07/31/20 23:32 08/01/20 08:31 Sodium Chlor 0.9 % + Kcl 20 Meq IV 30 mls/hr .Q24H YOSEF Administration Heparin Sodium/Sod ium Chloride 25,000 unit in 50 0 mls @ 0 mls/hr 07/31/20 23:32 08/01/20 08:31 Heparin Drip IV 13.43 unit/kg/hr .Q0M YOSEF 19 mls/hr Titration Protocol Per Protocol No Known Allergies Allergy (Unverified 07/31/20 19:07) Vitals/I&O/Wt Last Vital Signs Temp 100.1 F H 08/01/20 07:00 Pulse 79 08/01/20 09:45 Resp 38 H 08/01/20 09:45 BP 118/48 08/01/20 09:45 Pulse Ox 95 08/01/20 09:45 07/31/20 08/01/20 08/01/20 22:59 06:59 14:59 Intake Total 480 / 2481. 387 / 387 Output Total 1700 / 1700 Balance -1220 / 781.7 387 / 387 Weight last 48 hrs Weight 70.76 kg Physical Exam Const: COMMON NORMALS: no acute distress, patient oriented x3 and alert GENERAL APPEARANCE: cooperative and comfortable ORIENTATION/CONSCIOUSNESS: Yes awake OTHER: -appears quite fatigued and somewhat ill HENMT: COMMON NORMALS: normocephalic, atraumatic, hearing grossly normal bilaterally and moist oral mucous membranes HEAD & SCALP: normocephalic and atraumatic Eye: COMMON NORMALS: Equal, round and reactive pupils present, EOMs intact bilaterally and conjunctivae normal CONJUNCTIVA: Yes conjunctivae normal PUPIL: Yes Equal, round and reactive pupils present Neck/C-Spine: COMMON NORMALS: full ROM GENERAL: Yes normal visual inspection and Yes trachea midline Resp: COMMON NORMALS: normal respiratory effort, No retractions and No use of accessory muscles EFFORT & INSPECTION: Yes able to speak in complete sentences, Yes symmetric chest movement, Yes tachypneic and Yes Actively coughing dry OTHER: -diminished though equal air entry bilaterally, on 7 L high flow NC Cardio: COMMON NORMALS: regular rate, regular rhythm, S1 normal heart sound present, S2 normal heart sound present and No murmurs present (Cardio) RATE: regular rate RHYTHM: regular rhythm HEART SOUNDS: S1 normal heart sound present and S2 normal heart sound present GI: COMMON NORMALS: Normal to inspection, nondistended, normoactive bowel sounds present, Soft to palpation and non-tender PALPATION: Yes Soft to palpation Extremity: COMMON NORMALS: normal to inspection, full ROM and no clubbing, cyanosis or edema; negative for no pedal edema Neuro: COMMON NORMALS: patient oriented x3, moves all extremities, no focal motor deficits and no sensory deficits noted SENSORIUM/ORIENTATION: Yes alert Psych: COMMON NORMALS: mental status grossly normal, Normal thought process present, cooperative, normal affect and speech normal SPEECH: Yes normal speech THOUGHT PROCESS: Normal thought process present Skin: COMMON NORMALS: no rashes or lesions noted, no jaundice, no petechiae and no mottling GENERAL SKIN EXAM: no rashes or lesions noted Data : 08/01/20 03:40 08/01/20 05:13 A&P Assessment and plan (1) Pneumonia due to 2019 novel coronavirus: -symptomatic -rapid COVID-19 test positive -noted elevated inflammatory markers, continue to trend -CXR consistent with viral pneumonia -continue IV steroids; Remdesevir on hold due to noted LFT elevation -continue pulmonary toilet, antitussives, supplemental oxygen as needed, zinc, vitamin C -continue to monitor respiratory status -continue to monitor vital signs -not oxygen dependent at baseline -influenza negative, f/u sputum cx, blood cx, MRSA Status: Acute (2) Atrial fibrillation, new onset: -cardioverted in ED due to RVR and lack of response with meds as well as noted hemodynamic instability -telemetry monitoring; sinus rhythm -Echo: EF=65%, no RWMA, G1DD, trace AR, moderate -continue to monitor vital signs; will try low dose BB for now, off Cardizem -on AC with heparin drip; [id number] score-4 so needs long-term AC -replace K as needed -low TSH, normal free T4; resume methimazole Status: Acute (3) Dehydration: -secondary to GI losses and poor oral intake -IVF hydration as needed, encourage oral intake Status: Acute (4) Hypokalemia: -replace as needed particularly with ongoing GI losses Status: Acute (5) CHARLY (acute kidney injury): -secondary to dehydration -CHARLY on CKD stage 3a, baseline Cr wnl -on IVF hydration -continue to monitor renal function, avoid nephrotoxins, -hold ACEi Status: Acute (6) Hypertension: -hypotensive in ED, on IVF hydration -continue to monitor vital signs Status: Chronic Qualifiers: Hypertension type: essential hypertension Qualified Code(s): I10 - Essential (primary) hypertension (7) Hypocalcemia: -corrected Ca-8.3 Status: Acute (8) Hyponatremia: Status: Resolved Additional A&P Information -hx of hyperthyroidism; low TSH, normal FT4, resume methimazole -Intermittent claudication, cilostazol on hold -elevated D-dimer; venous duplex negative for DVT -cardiac diet as tolerated -GI ppx with Pepcid -DVT ppx not needed as on heparin drip -Dispo: home -Code status: FULL code Attestations Medical Necessity Statement*: Patient requires hospitalization for continued treatment of COVID-19 pneumonia, dehydration, new onset atrial fibrillation. Time Spent in Patient Care: Greater than 35 minutes (>than 50% of time spent in counselling and/or direct pt care on unit). Coding Level of Care Code Acute Physician Advisor for [facility] Fwd Exam Comprehensive Diagnoses Pneumonia due to 2019 novel coronavirus U07.1; J12.89 Atrial fibrillation, new onset I48.91 Dehydration E86.0 Hypokalemia E87.6 CHARLY (acute kidney injury) N17.9 Hypertension I10 Hypertension type: essential hypertension Hypocalcemia E83.51 Hyponatremia E87.1
--- NOTE | 2020-08-01 11:04 | PC.RESP ---
SMOKING CESSATION AND PULMONARY REHAB INFORMATION SENT TO PATIENT.
[2020-08-01] MEDS: acetaminophen 500 mg Tablet PO ×2 (11:09→19:05)
[2020-08-01] MEDS: ondansetron 2 mg/ML SDV 2 mL 4 MG IVP (11:10)
[2020-08-01] MEDS: methIMAzole 5 MG Tablet PO (11:11)
[2020-08-01] MEDS: potassium chloride premix 100 ML 25 MEQ IV (11:11)
[2020-08-01] MEDS: lidocaine 1% INJ 20 mL 5 ML IV (11:12)
[2020-08-01] MEDS: zinc gluconate 50 mg Tablet PO (11:13)
[2020-08-01] MEDS: ascorbic acid 500 mg Tablet PO (11:13)
[2020-08-01] MEDS: loperamide 2 mg Capsule PO ×2 (11:30→19:06)
[2020-08-01 14:10] LABS: Influenza A by IFA Negative (Negative); Influenza B by IFA Negative (Negative)
[2020-08-01 15:53] LABS: Partial Thromboplastin Time 85.4 SECONDS (23.9-36.7)
--- NOTE | 2020-08-01 18:45 | PC.NURSE ---
Received report on patient from Blanca WEISS. Assumed care at this time.
[2020-08-01] MEDS: montelukast sodium 10 mg Tablet PO (19:00)
[2020-08-01] MEDS: metoprolol tartrate 25 mg Tablet 12.5 MG PO (19:00)
[2020-08-01] MEDS: famotidine 20 mg Tablet PO (19:05)
[2020-08-02] VITALS (271 sets, daily range): BP systolic 96–165; BP diastolic 36–84; PULSE 51–112; RESP 11–33; TEMP 36.3–37.9; O2SAT 84–98
[2020-08-02 02:20] LABS: Partial Thromboplastin Time 135.9 SECONDS (23.9-36.7)
[2020-08-02 05:46] LABS: Hematocrit 37.8 % (37.0-47.0); Hemoglobin 11.7 g/dL (11.5-15.3); Lymphocytes # 0.7 10^3/uL (0.8-4.8); Lymphocytes % 22.4 %; Mean Corpuscular Volume 93.6 fL (81-99); Mean Platelet Volume 11.6 fL (7.4-10.4); Monocytes # 0.1 10^3/uL (0.2-0.9); Neutrophils # 2.36 10^3/uL (1.8-7.7); Neutrophils % 73.3 %; Nucleated Red Blood Cells % 0 %; Platelet Count 161 10^3/cmm (130-400); Red Blood Count 4.04 10^6/uL (4.1-5.3); Red Cell Distribution Width 14.6 % (12.1-15.1); White Blood Count 3.2 10^3/uL (4.0-10.0)
[2020-08-02 06:21] LABS: Alanine Aminotransferase 137 U/L (0-33); Albumin Level 3.1 g/dL (3.5-5.2); Alkaline Phosphatase 127 IU/L (35-105); Blood Urea Nitrogen 23 mg/dL (8-23); C Reactive Protein 37.8 mg/L (0.0-4.9); Carbon Dioxide 19 mmol/L (22-29); Chloride 113 mmol/L (98-107); Creatine Phosphokinase 75 U/L (26-192); Globulin 2.8 g/dL (1.3-4.6); Glucose 136 mg/dL (65-115); Osmolality Calculated 302 mOsm/kg (285-295); Sodium 143 mmol/L (136-145); Total Bilirubin 0.3 mg/dL (0.15-1.2); Total Protein 5.9 g/dL (6.6-8.7)
[2020-08-02 06:30] LABS: NT Pro B Type Natriuretic Pept 2633 pg/mL (0-125)
[2020-08-02 06:39] LABS: Anion Gap 14.4 (5-19); Aspartate Amino Transferase 105 U/L (0-32); Potassium 3.4 mmol/L (3.5-5.1)
[2020-08-02 06:42] LABS: Ferritin 1840 ng/mL (15-150)
[2020-08-02 06:43] LABS: Lactate Dehydrogenase 412 U/L (135-214)
[2020-08-02 06:45] LABS: Fibrinogen 537 mg/dL (174-498)
[2020-08-02 06:47] LABS: D Dimer 1.19 ug/mIFEU (0-0.59)
[2020-08-02] MEDS: albuterol 8 gm MDI 2 PUFF INHALATION ×2 (08:57→23:17)
[2020-08-02] MEDS: zinc gluconate 50 mg Tablet PO (09:07)
[2020-08-02] MEDS: famotidine 20 mg Tablet PO ×2 (09:07→17:12)
[2020-08-02] MEDS: ascorbic acid 500 mg Tablet PO (09:07)
[2020-08-02] MEDS: dexamethasone 4 mg Tablet 6 MG PO (09:07)
[2020-08-02] MEDS: methIMAzole 5 MG Tablet PO (09:07)
[2020-08-02] MEDS: metoprolol tartrate 25 mg Tablet 12.5 MG PO ×2 (09:08→17:12)
[2020-08-02] MEDS: acetaminophen 500 mg Tablet PO ×2 (09:09→17:13)
[2020-08-02] MEDS: heparin drip 25,000 UNIT/500 ML PREMIX 13 UNIT IV (09:10)
[2020-08-02] MEDS: sodium chlor 0.9% + KCl 20 mEq 20 MEQ/1,000 ML BAG 30 MEQ IV (09:12)
--- NOTE | 2020-08-02 13:28 | PM.PN ---
Subjective Subjective: Interval history: Hemodynamically stable, afebrile, decreasing oyxgen requirement, on 2 L NC, had 500 mL urine output overnight. Improving inflammatory markers, improving LFTs. Overall looks better and reports feeling better today, has been able to get up and spent some time sitting up in a recliner this morning. Appetite and oral intake has improved. Will start on empiric antibiotics secondary to urinalysis indicative of infection. Continues to have loose stool though she states that this is a chronic issue that she has had for several years secondary to inflammatory bowel disease. Medications: Reviewed: Yes Medication Review Details: Active Medications Generic Name Dose Route Start Last Admin Trade Name Freq PRN Reason Stop Dose Admin Acetaminophen 500 mg 08/01/20 10:14 08/02/20 09:09 Tylenol PO 500 mg Q6H PRN Administration MILD PAIN OR INCR EASE TEMP Albuterol Sulfate 2 puff 07/31/20 23:32 08/02/20 08:57 Ventolin INHALATION 2 puff Q4H.RESPIRATORY P RN Administration SHORTNESS OF JOSE TH Ascorbic Acid 500 mg 08/01/20 11:00 08/02/20 09:07 Vitamin C PO 500 mg DAILY YOSEF Administration Dexamethasone 6 mg 08/01/20 09:00 08/02/20 09:07 Decadron PO 6 mg DAILY YOSEF Administration Famotidine 20 mg 08/01/20 18:00 08/02/20 09:07 Pepcid Tab PO 20 mg BID YOSEF Administration Heparin Sodium (Be ef Lung) 0 unit 07/31/20 23:32 Heparin IV PRN PRN Heparin weight-ba se protocol Protocol Diltiazem HCl 125 mg/ Sodium 125 mls @ 0 mls/h r 07/31/20 20:45 07/31/20 21:40 Chloride IV 0 mg/hr .Q0M YOSEF 0 mls/hr Titration Protocol Per Protocol Sodium Chloride 1,000 mls @ 100 m ls/hr 07/31/20 21:30 07/31/20 21:35 Sodium Chloride 0.9% IV 100 mls/hr .Q10H YOSEF Administration Potassium Chloride /Sodium Chloride 20 meq in 1,000 m ls @ 30 mls/hr 07/31/20 23:32 08/02/20 09:12 Sodium Chlor 0.9 % + Kcl 20 Meq IV 30 mls/hr .Q24H YOSEF Administration Heparin Sodium/Sod ium Chloride 25,000 unit in 50 0 mls @ 0 mls/hr 07/31/20 23:32 08/02/20 10:45 Heparin Drip IV 9.89 unit/kg/hr .Q0M YOSEF 14 mls/hr Titration Protocol Per Protocol Loperamide HCl 2 mg 08/01/20 10:14 08/01/20 19:06 Imodium Capsule PO 2 mg QID PRN Administration DIARRHEA Methimazole 5 mg 08/01/20 11:00 08/02/20 09:07 Tapazole PO 5 mg DAILY YOSEF Administration Metoprolol Tartrat e 12.5 mg 08/01/20 18:00 08/02/20 09:08 Lopressor PO 12.5 mg BID YOSEF Administration Montelukast Sodium 10 mg 08/01/20 18:00 08/01/20 19:00 Singulair PO 10 mg QPM YOSEF Administration Ondansetron HCl 4 mg 08/01/20 10:14 08/01/20 11:10 Zofran IVP 4 mg Q6H PRN Administration NAUSEA AND VOMITI NG Zinc Gluconate 50 mg 08/01/20 11:00 08/02/20 09:07 Zinc Gluconate PO 50 mg DAILY YOSEF Administration No Known Allergies Allergy (Unverified 07/31/20 19:07) Vitals/I&O/Wt Last Vital Signs Temp 97.4 F L 08/02/20 09:00 Pulse 68 08/02/20 12:48 Resp 17 08/02/20 12:48 BP 126/53 08/02/20 12:20 Pulse Ox 96 08/02/20 12:48 08/01/20 08/02/20 08/02/20 22:59 06:59 14:59 Intake Total 347.567 / 1534.567 398.433 / 0395.647 9816.617 / 1413.617 Output Total 500 / 1500 550 / 2050 1400 / 1400 Balance -152.433 / 34.567 -151.567 / -117.000 13.617 / 13.617 Weight last 48 hrs Weight 70.76 kg Physical Exam Const: COMMON NORMALS: no acute distress, patient oriented x3 and alert GENERAL APPEARANCE: cooperative and comfortable; not ill appearing ORIENTATION/CONSCIOUSNESS: Yes awake OTHER: -appears less fatigued HENMT: COMMON NORMALS: normocephalic, atraumatic, hearing grossly normal bilaterally and moist oral mucous membranes HEAD & SCALP: normocephalic and atraumatic Eye: COMMON NORMALS: Equal, round and reactive pupils present, EOMs intact bilaterally and conjunctivae normal CONJUNCTIVA: Yes conjunctivae normal PUPIL: Yes Equal, round and reactive pupils present Neck/C-Spine: COMMON NORMALS: full ROM GENERAL: Yes normal visual inspection and Yes trachea midline Resp: COMMON NORMALS: normal respiratory effort, No retractions and No use of accessory muscles EFFORT & INSPECTION: Yes able to speak in complete sentences, Yes symmetric chest movement, Yes tachypneic and Yes Actively coughing dry OTHER: -diminished though equal air entry bilaterally, on 2 L NC Cardio: COMMON NORMALS: regular rate, regular rhythm, S1 normal heart sound present, S2 normal heart sound present and No murmurs present (Cardio) RATE: regular rate RHYTHM: regular rhythm HEART SOUNDS: S1 normal heart sound present and S2 normal heart sound present GI: COMMON NORMALS: Normal to inspection, nondistended, normoactive bowel sounds present, Soft to palpation and non-tender PALPATION: Yes Soft to palpation Extremity: COMMON NORMALS: normal to inspection, full ROM and no clubbing, cyanosis or edema; negative for no pedal edema Neuro: COMMON NORMALS: patient oriented x3, moves all extremities, no focal motor deficits and no sensory deficits noted SENSORIUM/ORIENTATION: Yes alert Psych: COMMON NORMALS: mental status grossly normal, Normal thought process present, cooperative, normal affect and speech normal SPEECH: Yes normal speech THOUGHT PROCESS: Normal thought process present Skin: COMMON NORMALS: no rashes or lesions noted, no jaundice, no petechiae and no mottling GENERAL SKIN EXAM: no rashes or lesions noted Data : 08/02/20 04:10 08/02/20 04:10 Micro: Microbiology 08/01/20 12:00 Blood Culture - Preliminary Blood NEGATIVE TO DATE 08/01/20 11:50 Blood Culture - Preliminary Blood NEGATIVE TO DATE 08/01/20 11:30 MRSA Culture - Final Nose A&P Assessment and plan (1) Pneumonia due to 2019 novel coronavirus: -symptomatic -rapid COVID-19 test positive -noted elevated inflammatory markers, continue to trend -CXR consistent with viral pneumonia -continue IV steroids; Remdesevir on hold due to noted LFT elevation -continue pulmonary toilet, antitussives, supplemental oxygen as needed, zinc, vitamin C -continue to monitor respiratory status -continue to monitor vital signs -not oxygen dependent at baseline -influenza negative -sputum cx pending, gram stain polymicrobial -blood cx prelim negative, MRSA negative -would hold off on antibiotics as pro-calcitonin and lactic acid wnl Status: Acute (2) Atrial fibrillation, new onset: -cardioverted in ED due to RVR and lack of response with meds as well as noted hemodynamic instability -telemetry monitoring; sinus rhythm -Echo: EF=65%, no RWMA, G1DD, trace AR, moderate -continue to monitor vital signs; on low dose BB for now, off Cardizem drip -on AC with heparin drip; [id number] score-4 so needs long-term AC -replace K as needed -low TSH, normal free T4; on methimazole Status: Acute (3) Dehydration: -secondary to GI losses and poor oral intake -IVF hydration as needed, encourage oral intake Status: Acute (4) Hypokalemia: -replace as needed particularly with ongoing GI losses Status: Acute (5) CHARLY (acute kidney injury): -secondary to dehydration -CHARLY on CKD stage 3a, baseline Cr wnl -on IVF hydration -continue to monitor renal function, avoid nephrotoxins, renal function improving -hold ACEi Status: Acute (6) UTI (urinary tract infection): -UA contaminated but indicative of infection -unlikely to get urine culture because of # of squamous epithelial cells -start on treatment with ceftriaxone Status: Acute Qualifiers: Hematuria presence: without hematuria Urinary tract infection type: acute cystitis Qualified Code(s): N30.00 - Acute cystitis without hematuria (7) Hypertension: -hypotensive in ED, off IVF hydration with improvement -continue to monitor vital signs; normotensive Status: Chronic Qualifiers: Hypertension type: essential hypertension Qualified Code(s): I10 - Essential (primary) hypertension (8) Hypocalcemia: -corrected Ca-8.7 Status: Resolved (9) Hyponatremia: Status: Resolved Additional A&P Information -hx of hyperthyroidism; low TSH, normal FT4, continue methimazole -Intermittent claudication, cilostazol on hold -elevated D-dimer; venous duplex negative for DVT -cardiac diet as tolerated -GI ppx with Pepcid -DVT ppx not needed as on heparin drip -Dispo: home -Code status: FULL code Attestations Medical Necessity Statement*: Patient requires hospitalization for continued management of COVID-19 pneumonia, UTI. Time Spent in Patient Care: 16 - 35 minutes (>than 50% of time spent in counselling and/or direct pt care on unit). Coding Level of Care Code Acute Director Of Web Marketing for [facility] Fwd Exam Comprehensive Diagnoses Pneumonia due to 2019 novel coronavirus U07.1; J12.89 Atrial fibrillation, new onset I48.91 Dehydration E86.0 Hypokalemia E87.6 CHARLY (acute kidney injury) N17.9 UTI (urinary tract infection) N30.00 Hematuria presence: without hematuria Urinary tract infection type: acute cystitis Hypertension I10 Hypertension type: essential hypertension Hypocalcemia E83.51 Hyponatremia E87.1
[2020-08-02] MEDS: cefTRIAXone 1,000 MG in sodium chloride 0.9% (plus) 50 ML 100 MG IV (17:11)
[2020-08-02] MEDS: montelukast sodium 10 mg Tablet PO (17:12)
[2020-08-02] MEDS: nystatin powder 15 gm Btl 1 APPLIC TOPICAL (17:12)
[2020-08-02] MEDS: potassium chloride ER 10 mEq Tablet 40 MEQ PO (17:42)
--- NOTE | 2020-08-02 18:45 | PC.NURSE ---
Received report on patient from Blanca WEISS. Assumed care at this time.
[2020-08-02 19:23] LABS: Partial Thromboplastin Time 38.5 SECONDS (23.9-36.7)
--- NOTE | 2020-08-02 21:30 | PC.NURSE ---
Blood drawn and sent to lab. Patient tolerated well.
[2020-08-02 21:56] LABS: Magnesium 1.8 mg/dL (1.7-2.3); Phosphorus 2.6 mg/dL (2.5-4.5)
[2020-08-02 22:02] LABS: Potassium 4.3 mmol/L (3.5-5.1)
[2020-08-03] VITALS (135 sets, daily range): BP systolic 82–177; BP diastolic 48–89; PULSE 53–133; RESP 11–37; TEMP 36.5–36.7; O2SAT 85–100
[2020-08-03] MEDS: cefTRIAXone 1,000 MG in sodium chloride 0.9% (plus) 50 ML 100 MG IV ×2 (02:00→13:41)
[2020-08-03 02:49] LABS: Hematocrit 35.8 % (37.0-47.0); Hemoglobin 11.2 g/dL (11.5-15.3); Lymphocytes # 0.8 10^3/uL (0.8-4.8); Lymphocytes % 9.4 %; Mean Corpuscular HGB Conc 31.3 g/dL (30.0-36.0); Mean Corpuscular Volume 92.7 fL (81-99); Mean Platelet Volume 11.3 fL (7.4-10.4); Monocytes # 0.3 10^3/uL (0.2-0.9); Monocytes % 3.9 %; Neutrophils # 6.89 10^3/uL (1.8-7.7); Neutrophils % 86.2 %; Nucleated Red Blood Cells % 0 %; Platelet Count 203 10^3/cmm (130-400); Red Blood Count 3.86 10^6/uL (4.1-5.3); Red Cell Distribution Width 14.7 % (12.1-15.1)
[2020-08-03 03:18] LABS: Alanine Aminotransferase 95 U/L (0-33); Albumin Level 2.9 g/dL (3.5-5.2); Alkaline Phosphatase 108 IU/L (35-105); Aspartate Amino Transferase 45 U/L (0-32); Blood Urea Nitrogen 28 mg/dL (8-23); C Reactive Protein 11.1 mg/L (0.0-4.9); Calcium 7.8 mg/dL (8.5-10.5); Carbon Dioxide 19 mmol/L (22-29); Chloride 114 mmol/L (98-107); Globulin 2.8 g/dL (1.3-4.6); Glucose 142 mg/dL (65-115); Osmolality Calculated 302 mOsm/kg (285-295); Sodium 142 mmol/L (136-145); Total Bilirubin 0.2 mg/dL (0.15-1.2); Total Protein 5.7 g/dL (6.6-8.7)
[2020-08-03 03:22] LABS: Partial Thromboplastin Time 37.7 SECONDS (23.9-36.7)
[2020-08-03 03:32] LABS: NT Pro B Type Natriuretic Pept 2834 pg/mL (0-125)
[2020-08-03 03:36] LABS: Anion Gap 13.3 (5-19); Potassium 4.3 mmol/L (3.5-5.1)
[2020-08-03 03:40] LABS: Fibrinogen 505 mg/dL (174-498)
[2020-08-03 03:42] LABS: D Dimer 0.84 ug/mIFEU (0-0.59)
[2020-08-03 03:54] LABS: Ferritin 1178 ng/mL (15-150)
[2020-08-03 04:06] LABS: Lactate Dehydrogenase 339 U/L (135-214)
--- NOTE | 2020-08-03 06:00 | XR_ITS ---
WS: [id number] Exam: XR chest 1V portable [id number] Date/Time of Exam: 08/03/2020 6:41 AM Reason For Exam: progression of COVID-19 pneumonia Findings: Comparison 07/31/2020. Infiltrates in the bilateral lower lung zones have increased slightly since previous study. Remaining lung ibanez are clear. The lungs are fully inflated. No pleural effusions. Cardiomediastinal structu res are unremarkable. Bony elements are intact. XR/XR chest 1V portable [id number] IMPRESSION: 1. Infiltrates in the bilateral lower lung zones have increased slightly since prior study but no other change.
[2020-08-03 08:20] LABS: Partial Thromboplastin Time 49.6 SECONDS (23.9-36.7)
[2020-08-03] MEDS: famotidine 20 mg Tablet PO ×2 (08:43→17:42)
[2020-08-03] MEDS: methIMAzole 5 MG Tablet PO (08:43)
[2020-08-03] MEDS: ascorbic acid 500 mg Tablet PO (08:43)
[2020-08-03] MEDS: metoprolol tartrate 25 mg Tablet 12.5 MG PO ×2 (08:43→17:43)
[2020-08-03] MEDS: zinc gluconate 50 mg Tablet PO (08:43)
[2020-08-03] MEDS: dexamethasone 4 mg Tablet 6 MG PO (08:53)
[2020-08-03] MEDS: heparin 5,000 unit/mL INJ 1 mL IV (08:55)
[2020-08-03] MEDS: nystatin powder 15 gm Btl 1 APPLIC TOPICAL (09:07)
--- NOTE | 2020-08-03 09:23 | PM.PN ---
Subjective Subjective: Interval history: Hemodynamically stable, on 2 L NC, had a low grade temp (100.3F) yesterday afternoon, has been afebrile since, improving inflammatory markers and LFTs. Loose stool persists, does feel somewhat better today. Appetite is improving as well. Medications: Reviewed: Yes Medication Review Details: Active Medications Generic Name Dose Route Start Last Admin Trade Name Freq PRN Reason Stop Dose Admin Acetaminophen 500 mg 08/01/20 10:14 08/02/20 17:13 Tylenol PO 500 mg Q6H PRN Administration MILD PAIN OR INCR EASE TEMP Albuterol Sulfate 2 puff 07/31/20 23:32 08/02/20 23:17 Ventolin INHALATION 2 puff Q4H.RESPIRATORY P RN Administration SHORTNESS OF JOSE TH Ascorbic Acid 500 mg 08/01/20 11:00 08/03/20 08:43 Vitamin C PO 500 mg DAILY YOSEF Administration Dexamethasone 6 mg 08/01/20 09:00 08/03/20 08:53 Decadron PO 6 mg DAILY YOSEF Administration Famotidine 20 mg 08/01/20 18:00 08/03/20 08:43 Pepcid Tab PO 20 mg BID YOSEF Administration Heparin Sodium (Be ef Lung) 0 unit 07/31/20 23:32 08/03/20 08:55 Heparin IV 1,500 unit PRN PRN Administration Heparin weight-ba se protocol Protocol Potassium Chloride /Sodium Chloride 20 meq in 1,000 m ls @ 30 mls/hr 07/31/20 23:32 08/02/20 09:12 Sodium Chlor 0.9 % + Kcl 20 Meq IV 30 mls/hr .Q24H YOSEF Administration Heparin Sodium/Sod ium Chloride 25,000 unit in 50 0 mls @ 0 mls/hr 07/31/20 23:32 08/03/20 08:42 Heparin Drip IV 14.84 unit/kg/hr .Q0M YOSEF 21 mls/hr Titration Protocol Per Protocol Ceftriaxone Sodium 1,000 mg/ 50 mls @ 100 mls/ hr 08/02/20 14:00 08/03/20 07:05 Sodium Chloride IV Infused Q12H YOSEF Infusion Protocol Loperamide HCl 2 mg 08/01/20 10:14 08/01/20 19:06 Imodium Capsule PO 2 mg QID PRN Administration DIARRHEA Methimazole 5 mg 08/01/20 11:00 08/03/20 08:43 Tapazole PO 5 mg DAILY YOSEF Administration Metoprolol Tartrat e 12.5 mg 08/01/20 18:00 08/03/20 08:43 Lopressor PO 12.5 mg BID YOSEF Administration Montelukast Sodium 10 mg 08/01/20 18:00 08/02/20 17:12 Singulair PO 10 mg QPM YOSEF Administration Nystatin 1 applic 08/02/20 18:00 08/03/20 09:07 Nystatin Powder TOPICAL 1 applic BID YOSEF Administration Ondansetron HCl 4 mg 08/01/20 10:14 08/01/20 11:10 Zofran IVP 4 mg Q6H PRN Administration NAUSEA AND VOMITI NG Zinc Gluconate 50 mg 08/01/20 11:00 08/03/20 08:43 Zinc Gluconate PO 50 mg DAILY YOSEF Administration No Known Allergies Allergy (Unverified 07/31/20 19:07) Vitals/I&O/Wt Last Vital Signs Temp 100.3 F H 08/02/20 15:50 Pulse 65 08/03/20 05:45 Resp 37 H 08/03/20 05:45 BP 116/70 08/03/20 04:55 Pulse Ox 94 08/03/20 05:45 08/02/20 08/03/20 08/03/20 22:59 06:59 14:59 Intake Total 450 / 1863.617 360 / 2223.617 366.500 / 366.500 Output Total 800 / 2200 650 / 2850 Balance -350 / -336.383 -290 / -626.383 366.500 / 366.500 Physical Exam Const: COMMON NORMALS: no acute distress, patient oriented x3 and alert GENERAL APPEARANCE: cooperative and comfortable; not ill appearing ORIENTATION/CONSCIOUSNESS: Yes awake OTHER: -appears less fatigued, sitting up in bed HENMT: COMMON NORMALS: normocephalic, atraumatic, hearing grossly normal bilaterally and moist oral mucous membranes HEAD & SCALP: normocephalic and atraumatic Eye: COMMON NORMALS: Equal, round and reactive pupils present, EOMs intact bilaterally and conjunctivae normal CONJUNCTIVA: Yes conjunctivae normal PUPIL: Yes Equal, round and reactive pupils present Neck/C-Spine: COMMON NORMALS: full ROM GENERAL: Yes normal visual inspection and Yes trachea midline Resp: COMMON NORMALS: normal respiratory effort, No retractions and No use of accessory muscles EFFORT & INSPECTION: Yes able to speak in complete sentences, Yes symmetric chest movement, Yes tachypneic and Yes Actively coughing dry OTHER: -diminished though equal air entry bilaterally, on 2 L NC Cardio: COMMON NORMALS: regular rate, regular rhythm, S1 normal heart sound present, S2 normal heart sound present and No murmurs present (Cardio) RATE: regular rate RHYTHM: regular rhythm HEART SOUNDS: S1 normal heart sound present and S2 normal heart sound present GI: COMMON NORMALS: Normal to inspection, nondistended, normoactive bowel sounds present, Soft to palpation and non-tender PALPATION: Yes Soft to palpation Extremity: COMMON NORMALS: normal to inspection, full ROM and no clubbing, cyanosis or edema; negative for no pedal edema Neuro: COMMON NORMALS: patient oriented x3, moves all extremities, no focal motor deficits and no sensory deficits noted SENSORIUM/ORIENTATION: Yes alert Psych: COMMON NORMALS: mental status grossly normal, Normal thought process present, cooperative, normal affect and speech normal SPEECH: Yes normal speech THOUGHT PROCESS: Normal thought process present Skin: COMMON NORMALS: no rashes or lesions noted, no jaundice, no petechiae and no mottling GENERAL SKIN EXAM: no rashes or lesions noted Data : 08/03/20 01:40 08/03/20 01:40 Micro: Microbiology 08/02/20 15:50 Gram Stain - Final Sputum - Expectorated Sputum 08/01/20 12:00 Blood Culture - Preliminary Blood NEGATIVE TO DATE 08/01/20 11:50 Blood Culture - Preliminary Blood NEGATIVE TO DATE 08/01/20 11:30 MRSA Culture - Final Nose A&P Assessment and plan (1) Pneumonia due to 2019 novel coronavirus: -symptomatic -rapid COVID-19 test positive -noted elevated inflammatory markers, continue to trend -CXR consistent with viral pneumonia -continue IV steroids; Remdesevir on hold due to noted LFT elevation -continue pulmonary toilet, antitussives, supplemental oxygen as needed, zinc, vitamin C -continue to monitor respiratory status -continue to monitor vital signs -not oxygen dependent at baseline -influenza negative -sputum cx pending, gram stain polymicrobial -blood cx prelim negative, MRSA negative -would hold off on antibiotics as pro-calcitonin and lactic acid wnl Status: Acute (2) Atrial fibrillation, new onset: -cardioverted in ED due to RVR and lack of response with meds as well as noted hemodynamic instability -telemetry monitoring; sinus rhythm -Echo: EF=65%, no RWMA, G1DD, trace AR, moderate -continue to monitor vital signs; on low dose BB for now, off Cardizem drip -on AC with heparin drip; [id number] score-4 so needs long-term AC. Switch to Eliquis -replace K as needed -low TSH, normal free T4; on methimazole Status: Acute (3) Dehydration: -secondary to GI losses and poor oral intake -IVF hydration as needed, encourage oral intake Status: Acute (4) Hypokalemia: -replace as needed particularly with ongoing GI losses Status: Resolved (5) CHARLY (acute kidney injury): -secondary to dehydration -CHARLY on CKD stage 3a, baseline Cr wnl -on IVF hydration -continue to monitor renal function, avoid nephrotoxins, renal function improving -hold ACEi Status: Acute (6) UTI (urinary tract infection): -UA contaminated but indicative of infection -unlikely to get urine culture because of # of squamous epithelial cells -on treatment with ceftriaxone (day 2) Status: Acute Qualifiers: Hematuria presence: without hematuria Urinary tract infection type: acute cystitis Qualified Code(s): N30.00 - Acute cystitis without hematuria (7) Hypertension: -hypotensive in ED, off IVF hydration with improvement -continue to monitor vital signs; normotensive Status: Chronic Qualifiers: Hypertension type: essential hypertension Qualified Code(s): I10 - Essential (primary) hypertension (8) Hypocalcemia: -corrected Ca-8.7 Status: Resolved (9) Hyponatremia: Status: Resolved Additional A&P Information -hx of hyperthyroidism; low TSH, normal FT4, continue methimazole -Intermittent claudication, cilostazol on hold -elevated D-dimer; venous duplex negative for DVT -cardiac diet as tolerated -GI ppx with Pepcid -DVT ppx not needed as on heparin drip -Dispo: home -Code status: FULL code Attestations Medical Necessity Statement*: Patient requires hospitalization for continued management of COVID-19 pneumonia, UTI. Time Spent in Patient Care: 16 - 35 minutes (>than 50% of time spent in counselling and/or direct pt care on unit). Coding Level of Care Code Acute Quality Improvement Consultant for [facility] Fwd Exam Comprehensive Diagnoses Pneumonia due to 2019 novel coronavirus U07.1; J12.89 Atrial fibrillation, new onset I48.91 Dehydration E86.0 Hypokalemia E87.6 CHARLY (acute kidney injury) N17.9 UTI (urinary tract infection) N30.00 Hematuria presence: without hematuria Urinary tract infection type: acute cystitis Hypertension I10 Hypertension type: essential hypertension Hypocalcemia E83.51 Hyponatremia E87.1
--- NOTE | 2020-08-03 09:30 | PC.SOCIAL ---
IMM Page 2 of IMM explained to patient by phone. She verbalizes understanding. Initialed, dated, and timed and will be sent to medical records upon d/c to be uploaded to patient's EHR.
[2020-08-03] MEDS: apixaban 5 mg Tablet PO ×2 (10:09→17:42)
[2020-08-03] MEDS: montelukast sodium 10 mg Tablet PO (17:42)
[2020-08-04] VITALS (28 sets, daily range): BP systolic 131–177; BP diastolic 53–97; PULSE 57–87; RESP 15–30; TEMP 36.4–37.2; O2SAT 89–97
[2020-08-04] MEDS: cefTRIAXone 1,000 MG in sodium chloride 0.9% (plus) 50 ML 100 MG IV ×2 (01:47→13:12)
[2020-08-04 05:28] LABS: Basophils % 0.1 %; Hematocrit 36.5 % (37.0-47.0); Hemoglobin 11.2 g/dL (11.5-15.3); Lymphocytes # 0.9 10^3/uL (0.8-4.8); Lymphocytes % 12.8 %; Mean Corpuscular HGB Conc 30.7 g/dL (30.0-36.0); Mean Corpuscular Hemoglobin 28.6 pg (28.0-34.0); Mean Corpuscular Volume 93.1 fL (81-99); Mean Platelet Volume 10.9 fL (7.4-10.4); Monocytes # 0.5 10^3/uL (0.2-0.9); Monocytes % 7.5 %; Neutrophils # 5.35 10^3/uL (1.8-7.7); Neutrophils % 78.9 %; Nucleated Red Blood Cells % 0 %; Platelet Count 212 10^3/cmm (130-400); Red Blood Count 3.92 10^6/uL (4.1-5.3); Red Cell Distribution Width 14.6 % (12.1-15.1); White Blood Count 6.8 10^3/uL (4.0-10.0)
[2020-08-04 05:40] LABS: Fibrinogen 493 mg/dL (174-498)
[2020-08-04 05:42] LABS: D Dimer 1.01 ug/mIFEU (0-0.59)
[2020-08-04 05:47] LABS: Alanine Aminotransferase 68 U/L (0-33); Albumin Level 3.1 g/dL (3.5-5.2); Alkaline Phosphatase 101 IU/L (35-105); Anion Gap 15.5 (5-19); Aspartate Amino Transferase 31 U/L (0-32); Blood Urea Nitrogen 28 mg/dL (8-23); C Reactive Protein 3.9 mg/L (0.0-4.9); Calcium 7.9 mg/dL (8.5-10.5); Carbon Dioxide 19 mmol/L (22-29); Chloride 113 mmol/L (98-107); Globulin 2.6 g/dL (1.3-4.6); Glucose 112 mg/dL (65-115); Osmolality Calculated 304 mOsm/kg (285-295); Potassium 3.5 mmol/L (3.5-5.1); Sodium 144 mmol/L (136-145); Total Bilirubin 0.2 mg/dL (0.15-1.2); Total Protein 5.7 g/dL (6.6-8.7)
[2020-08-04 05:48] LABS: Ferritin 600 ng/mL (15-150); Lactate Dehydrogenase 332 U/L (135-214)
[2020-08-04] MEDS: famotidine 20 mg Tablet PO ×2 (08:55→17:04)
[2020-08-04] MEDS: ascorbic acid 500 mg Tablet PO (08:55)
[2020-08-04] MEDS: zinc gluconate 50 mg Tablet PO (08:55)
[2020-08-04] MEDS: dexamethasone 4 mg Tablet 6 MG PO (08:56)
[2020-08-04] MEDS: apixaban 5 mg Tablet PO ×2 (08:56→17:03)
[2020-08-04] MEDS: metoprolol tartrate 25 mg Tablet 12.5 MG PO ×2 (08:56→17:03)
[2020-08-04] MEDS: methIMAzole 5 MG Tablet PO (09:06)
[2020-08-04] MEDS: nystatin powder 15 gm Btl 1 APPLIC TOPICAL (09:13)
[2020-08-04] MEDS: albuterol 8 gm MDI 2 PUFF INHALATION (09:29)
[2020-08-04] MEDS: benzonatate 100 mg Capsule 200 MG PO ×2 (13:12→19:56)
--- NOTE | 2020-08-04 13:44 | P.PN_ITS ---
Subjective Subjective: Interval history: Patient sitting up in bed, reports feeling better today, on RA currently, encouraged to ambulate in order to monitor her oxygenation and activity level with possible discharge tomorrow if appropriate. Appetite is improving. In good spirits and overall encouraged by her progress. Medications: Reviewed: Yes Medication Review Details: Active Medications Generic Name Dose Route Start Last Admin Trade Name Freq PRN Reason Stop Dose Admin Acetaminophen 500 mg 08/01/20 10:14 08/02/20 17:13 Tylenol PO 500 mg Q6H PRN Administration MILD PAIN OR INCR EASE TEMP Albuterol Sulfate 2 puff 07/31/20 23:32 08/04/20 09:29 Ventolin INHALATION 2 puff Q4H.RESPIRATORY P RN Administration SHORTNESS OF JOSE TH Apixaban 5 mg 08/03/20 10:00 08/04/20 08:56 Eliquis PO 5 mg BID YOSEF Administration Ascorbic Acid 500 mg 08/01/20 11:00 08/04/20 08:55 Vitamin C PO 500 mg DAILY YOSEF Administration Benzonatate 200 mg 08/04/20 10:00 08/04/20 13:12 Tessalon Pearls PO 200 mg TID PRN Administration COUGH Dexamethasone 6 mg 08/01/20 09:00 08/04/20 08:56 Decadron PO 6 mg DAILY YOSEF Administration Famotidine 20 mg 08/01/20 18:00 08/04/20 08:55 Pepcid Tab PO 20 mg BID YOSEF Administration Ceftriaxone Sodium 1,000 mg/ 50 mls @ 100 mls/ hr 08/02/20 14:00 08/04/20 13:12 Sodium Chloride IV 100 mls/hr Q12H YOSEF Administration Protocol Loperamide HCl 2 mg 08/01/20 10:14 08/01/20 19:06 Imodium Capsule PO 2 mg QID PRN Administration DIARRHEA Methimazole 5 mg 08/01/20 11:00 08/04/20 09:06 Tapazole PO 5 mg DAILY YOSEF Administration Metoprolol Tartrat e 12.5 mg 08/01/20 18:00 08/04/20 08:56 Lopressor PO 12.5 mg BID YOSEF Administration Montelukast Sodium 10 mg 08/01/20 18:00 08/03/20 17:42 Singulair PO 10 mg QPM YOSEF Administration Nystatin 1 applic 08/02/20 18:00 08/04/20 09:13 Nystatin Powder TOPICAL 1 applic BID YOSEF Administration Ondansetron HCl 4 mg 08/01/20 10:14 08/01/20 11:10 Zofran IVP 4 mg Q6H PRN Administration NAUSEA AND VOMITI NG Fluticasone/Salmet ortiz 1 puff 08/04/20 08:00 08/04/20 09:29 Advair Diskus 50 0-50 INHALATION 1 puff BID.RESPIRATORY S CH Administration Zinc Gluconate 50 mg 08/01/20 11:00 08/04/20 08:55 Zinc Gluconate PO 50 mg DAILY YOSEF Administration No Known Allergies Allergy (Unverified 07/31/20 19:07) Vitals/I&O/Wt Last Vital Signs Temp 98.7 F 08/04/20 11:27 Pulse 64 08/04/20 13:00 Resp 21 H 08/04/20 13:00 BP 156/80 08/04/20 13:00 Pulse Ox 94 08/04/20 13:00 08/03/20 08/04/20 08/04/20 22:59 06:59 14:59 Intake Total 240 / 2146.383 1010 / 1010 Output Total 1050 / 1750 Balance -810 / 732.535 9862 / 1009 Physical Exam Const: COMMON NORMALS: no acute distress, patient oriented x3 and alert GENERAL APPEARANCE: cooperative and comfortable; not ill appearing ORIENTATION/CONSCIOUSNESS: Yes awake OTHER: -sitting up in bed HENMT: COMMON NORMALS: normocephalic, atraumatic, hearing grossly normal bilaterally and moist oral mucous membranes HEAD & SCALP: normocephalic and atraumatic Eye: COMMON NORMALS: Equal, round and reactive pupils present, EOMs intact bilaterally and conjunctivae normal CONJUNCTIVA: Yes conjunctivae normal PUPIL: Yes Equal, round and reactive pupils present Neck/C-Spine: COMMON NORMALS: full ROM GENERAL: Yes normal visual inspection and Yes trachea midline Resp: COMMON NORMALS: normal respiratory effort, No retractions and No use of accessory muscles EFFORT & INSPECTION: Yes able to speak in complete sentences, Yes symmetric chest movement and Yes tachypneic OTHER: -diminished though equal air entry bilaterally, improved today, on RA Cardio: COMMON NORMALS: regular rate, regular rhythm, S1 normal heart sound present, S2 normal heart sound present and No murmurs present (Cardio) RATE: regular rate RHYTHM: regular rhythm HEART SOUNDS: S1 normal heart sound present and S2 normal heart sound present GI: COMMON NORMALS: Normal to inspection, nondistended, normoactive bowel sounds present, Soft to palpation and non-tender PALPATION: Yes Soft to palpation Extremity: COMMON NORMALS: normal to inspection, full ROM and no clubbing, cyanosis or edema; negative for no pedal edema Neuro: COMMON NORMALS: patient oriented x3, moves all extremities, no focal motor deficits and no sensory deficits noted SENSORIUM/ORIENTATION: Yes alert Psych: COMMON NORMALS: mental status grossly normal, Normal thought process present, cooperative, normal affect and speech normal SPEECH: Yes normal speech THOUGHT PROCESS: Normal thought process present Skin: COMMON NORMALS: no rashes or lesions noted, no jaundice, no petechiae and no mottling GENERAL SKIN EXAM: no rashes or lesions noted Data : 08/04/20 03:30 08/04/20 03:30 Micro: Microbiology 08/02/20 15:50 Gram Stain - Final Sputum - Expectorated Sputum Sputum Culture - Preliminary A&P Assessment and plan (1) Pneumonia due to 2019 novel coronavirus: -symptomatic -rapid COVID-19 test positive -noted elevated inflammatory markers, trending down consistently -CXR consistent with viral pneumonia -continue IV steroids; Remdesevir not given due to noted LFT elevation -continue pulmonary toilet, antitussives, supplemental oxygen as needed, zinc, vitamin C -continue to monitor respiratory status -continue to monitor vital signs -not oxygen dependent at baseline -influenza negative -sputum cx-mixed david, gram stain polymicrobial -blood cx prelim negative, MRSA negative -would hold off on antibiotics as pro-calcitonin and lactic acid wnl Status: Acute (2) Atrial fibrillation, new onset: -cardioverted in ED due to RVR and lack of response with meds as well as noted hemodynamic instability -telemetry monitoring; sinus rhythm -Echo: EF=65%, no RWMA, G1DD, trace AR, moderate -continue to monitor vital signs; on low dose BB for now, off Cardizem drip -off heparin drip; [id number] score-4 so needs long-term AC. Switched to Eliquis -replace K as needed -low TSH, normal free T4; on methimazole Status: Acute (3) Dehydration: -secondary to GI losses and poor oral intake -off IVF hydration, encourage oral intake Status: Acute (4) Hypokalemia: -replace as needed particularly with ongoing GI losses Status: Resolved (5) CHARLY (acute kidney injury): -secondary to dehydration -CHARLY on CKD stage 3a, baseline Cr wnl -off IVF hydration -continue to monitor renal function, avoid nephrotoxins, renal function improving -hold ACEi Status: Resolved (6) UTI (urinary tract infection): -UA contaminated but indicative of infection -unlikely to get urine culture because of # of squamous epithelial cells -on treatment with ceftriaxone (day 3) Status: Acute Qualifiers: Urinary tract infection type: acute cystitis Hematuria presence: without hematuria Qualified Code(s): N30.00 - Acute cystitis without hematuria (7) Hypertension: -hypotensive in ED, off IVF hydration with improvement -continue to monitor vital signs; normotensive Status: Chronic Qualifiers: Hypertension type: essential hypertension Qualified Code(s): I10 - Essential (primary) hypertension (8) Hypocalcemia: -corrected Ca-8.6 Status: Resolved (9) Hyponatremia: Status: Resolved Additional A&P Information -hx of hyperthyroidism; low TSH, normal FT4, continue methimazole -Intermittent claudication, cilostazol on hold -elevated D-dimer; venous duplex negative for DVT -cardiac diet as tolerated -GI ppx with Pepcid -DVT ppx not needed as on Eliquis -Dispo: home -Code status: FULL code -encourage ambulation and monitor oxygen saturation in anticipation of discharge tomorrow Attestations Medical Necessity Statement*: Patient requires hospitalization for continued management of COVID-19 pneumonia, UTI. Time Spent in Patient Care: 16 - 35 minutes (>than 50% of time spent in counselling and/or direct pt care on unit) . Coding Level of Care Code Acute Sales Representative [facility] for [facility] Fwd Diagnoses Pneumonia due to 2019 novel coronavirus U07.1; J12.89 Atrial fibrillation, new onset I48.91 Dehydration E86.0 Hypokalemia E87.6 CHARLY (acute kidney injury) N17.9 UTI (urinary tract infection) N30.00 Urinary tract infection type: acute cystitis Hematuria presence: without hematuria Hypertension I10 Hypertension type: essential hypertension Hypocalcemia E83.51 Hyponatremia E87.1
[2020-08-04] MEDS: montelukast sodium 10 mg Tablet PO (17:03)
[2020-08-05] VITALS (15 sets, daily range): BP systolic 144–186; BP diastolic 52–107; PULSE 60–96; RESP 18–31; TEMP 36.4–36.7; O2SAT 88–97
[2020-08-05] MEDS: cefTRIAXone 1,000 MG in sodium chloride 0.9% (plus) 50 ML 100 MG IV (01:11)
[2020-08-05] MEDS: amlodipine 10 mg Tablet PO (08:10)
[2020-08-05] MEDS: famotidine 20 mg Tablet PO (08:10)
[2020-08-05] MEDS: zinc gluconate 50 mg Tablet PO (08:10)
[2020-08-05] MEDS: ascorbic acid 500 mg Tablet PO (08:10)
[2020-08-05] MEDS: apixaban 5 mg Tablet PO (08:10)
[2020-08-05] MEDS: dexamethasone 4 mg Tablet 6 MG PO (08:10)
[2020-08-05] MEDS: methIMAzole 5 MG Tablet PO (08:11)
[2020-08-05] MEDS: metoprolol tartrate 25 mg Tablet 12.5 MG PO (08:11)
[2020-08-05] MEDS: nystatin powder 15 gm Btl 1 APPLIC TOPICAL (08:11)
[2020-08-05] MEDS: benzonatate 100 mg Capsule 200 MG PO (08:12)
[2020-08-05] MEDS: albuterol 8 gm MDI 2 PUFF INHALATION (08:44)
--- NOTE | 2020-08-05 10:13 | P.DS_ITS ---
Discharge Providers Date of Admission: 07/31/20 21:53 Date of Discharge: August 05, 2020 Attending Provider at Admission: Jaison Jackson MD Attending Provider at Discharge: Roma Borrero MD Consults: None Primary Care Provider: Roge Escobar DO Diagnoses at Discharge Discharge Diagnosis (1) Pneumonia due to 2019 novel coronavirus: Status: Acute Permanent problem details: -symptomatic -rapid COVID-19 test positive -noted elevated inflammatory markers, trending down consistently -CXR consistent with viral pneumonia -continue IV steroids; Remdesevir not given due to noted LFT elevation -continue pulmonary toilet, antitussives, supplemental oxygen as needed, zinc, vitamin C -continue to monitor respiratory status -continue to monitor vital signs -not oxygen dependent at baseline; home oxygen evaluation prior to d/c-qualifies for 4 L NC -influenza negative -sputum cx-mixed david, gram stain polymicrobial -blood cx prelim negative, MRSA negative -would hold off on antibiotics as pro-calcitonin and lactic acid wnl (2) Atrial fibrillation, new onset: Status: Acute Permanent problem details: -cardioverted in ED due to RVR and lack of response with meds as well as noted hemodynamic instability -telemetry monitoring; sinus rhythm -Echo: EF=65%, no RWMA, G1DD, trace AR, moderate -continue to monitor vital signs; on low dose BB for now, off Cardizem drip -off heparin drip; [id number] score-4 so needs long-term AC. Switched to Eliquis -replace K as needed -low TSH, normal free T4; on methimazole (3) Dehydration: Status: Resolved Permanent problem details: -secondary to GI losses and poor oral intake -off IVF hydration, encourage oral intake (4) Hypokalemia: Status: Resolved (5) CHARLY (acute kidney injury): Status: Resolved Permanent problem details: -secondary to dehydration -CHARLY on CKD stage 3a, baseline Cr wnl -off IVF hydration -continue to monitor renal function, avoid nephrotoxins, renal function improving -resume ACEi (6) UTI (urinary tract infection): Status: Acute Permanent problem details: -UA contaminated but indicative of infection -unlikely to get urine culture because of # of squamous epithelial cells -on treatment with ceftriaxone (day 4) Qualifiers: Hematuria presence: without hematuria Urinary tract infection type: acute cystitis Qualified Code(s): N30.00 - Acute cystitis without hematuria (7) Hypertension: Status: Chronic Permanent problem details: -hypotensive in ED, off IVF hydration with improvement -continue to monitor vital signs; BP improving with resumption of BP meds Qualifiers: Hypertension type: essential hypertension Qualified Code(s): I10 - Essential (primary) hypertension (8) Hypocalcemia: Status: Resolved (9) Hyponatremia: Status: Resolved Other Information Additional DC diagnoses/information: -hx of hyperthyroidism; low TSH, normal FT4, continue methimazole -Intermittent claudication, resume cilostazol -elevated D-dimer; venous duplex negative for DVT Reason for Visit Reason for Visit: COVID Hospital Course Hospital Course: Patient was admitted to the viral ICU after having been found to be positive for COVID-19. She was quite symptomatic on initial assessment and was started on supportive care, supplemental oxygen support and IV steroids. Unfortunately due to noted liver function elevation, she did not receive remdesivir. Urinalysis was indicative of infection so she was started on antibiotic therapy. She was noted to have quite an elevated D-dimer though no evidence of VTE. On her initial assessment in the ER she was noted to have A. fib with RVR and due to hemodynamic instability and lack of response with medications, she was cardioverted with return to sinus rhythm. She has been on low-dose beta-juana as well as anticoagulation which initially was therapeutic Lovenox and was switched to Eliquis, following discussion with patient on need for long-term anticoagulation given underlying A. fib. She was noted to have acute kidney injury so FREDDIE inhibitor was held. Renal function has improved and her oral antihypertensives can be resumed. Liver function has almost completely normalized. Inflammatory markers have improved as well. Due to contaminated urine sample no urine cultures have been obtained but she will be continued on antibiotic therapy to complete her treatment course for UTI. She will also need to continue a short course of oral steroids. While at rest, she has been able to be weaned to room air but will need supplemental oxygen support particularly with exertion; per home oxygen evaluation she qualifies for 4 L. She will need appropriate follow-up with her primary care provider. She is counseled on need to continue to monitor her symptoms at home particularly with respect to temperature and oxygen levels. She is advised to seek medical attention immediately should she have worsening symptoms, persistently low oxygen levels or fever. She is to continue proper and frequent hand hygiene, mask wearing and maintenance of social distancing. Patient was noted to have diarrhea which she states is chronic though may have been exacerbated in light of viral illness. Discharge Summary: -Patient to follow-up with her primary care physician within 1 week Physical Exam Const: COMMON NORMALS: no acute distress, patient oriented x3 and alert GENERAL APPEARANCE: cooperative and comfortable; not ill appearing ORIENTATION/CONSCIOUSNESS: Yes awake OTHER: -sitting up in bed HENMT: COMMON NORMALS: normocephalic, atraumatic, hearing grossly normal bilaterally and moist oral mucous membranes HEAD & SCALP: normocephalic and atraumatic Eye: COMMON NORMALS: Equal, round and reactive pupils present, EOMs intact bilaterally and conjunctivae normal CONJUNCTIVA: Yes conjunctivae normal PUPIL: Yes Equal, round and reactive pupils present Neck/C-Spine: COMMON NORMALS: full ROM GENERAL: Yes normal visual inspection and Yes trachea midline Resp: COMMON NORMALS: normal respiratory effort, No retractions and No use of accessory muscles EFFORT & INSPECTION: Yes able to speak in complete sentences, Yes symmetric chest movement and Yes tachypneic OTHER: -diminished though equal air entry bilaterally, improved today, on RA Cardio: COMMON NORMALS: regular rate, regular rhythm, S1 normal heart sound present, S2 normal heart sound present and No murmurs present (Cardio) RATE: regular rate RHYTHM: regular rhythm HEART SOUNDS: S1 normal heart sound present and S2 normal heart sound present GI: COMMON NORMALS: Normal to inspection, nondistended, normoactive bowel sounds present, Soft to palpation and non-tender PALPATION: Yes Soft to palpation Extremity: COMMON NORMALS: normal to inspection, full ROM and no clubbing, cyanosis or edema; negative for no pedal edema Neuro: COMMON NORMALS: patient oriented x3, moves all extremities, no focal motor deficits and no sensory deficits noted SENSORIUM/ORIENTATION: Yes alert Psych: COMMON NORMALS: mental status grossly normal, Normal thought process present, cooperative, normal affect and speech normal SPEECH: Yes normal sp eech THOUGHT PROCESS: Normal thought process present Skin: COMMON NORMALS: no rashes or lesions noted, no jaundice, no petechiae and no mottling GENERAL SKIN EXAM: no rashes or lesions noted Discharge Data Data Completed and Pending: Completed Studies During Hospitalization Category Date Time Status CT head wo con* [id number] Urgent Cat Scan 07/31/20 19:35 Completed XR chest 1V sally ble [id number] Routine Exams 08/03/20 06:00 Completed XR chest 1V sally ble [id number] Stat Exams 07/31/20 19:35 Completed CV echo complete* [id number] Routine Ultrasound 08/01/20 07:00 [place] [id number] Routin e Ultrasound 08/01/20 07:00 Completed Pending at discharge Category Date Time Status Blood Culture Sta t Lab 08/01/20 12:00 Results Vitals: Last Vital Signs Temp 98.1 F 08/05/20 08:00 Pulse 76 08/05/20 09:00 Resp 19 H 08/05/20 09:00 BP 149/60 08/05/20 09:00 Pulse Ox 93 08/05/20 09:00 Discharge Plan Discharge Patient Disposition: Home Condition: Stable Prescriptions: New Eliquis 5 mg Tablet 5 mg PO BID Qty: 60 RF: 0 Vitamin C 500 mg Tablet 500 mg PO DAILY Qty: 30 RF: 0 dexamethasone 4 mg Tablet 6 mg PO DAILY 6 Days Qty: 10 RF: 0 zinc gluconate 50 mg Tablet 50 mg PO DAILY Qty: 30 RF: 0 metoprolol tartrate 25 mg Tablet 25 mg PO BID Qty: 60 RF: 0 cefuroxime axetil 500 mg tablet 500 mg PO BID 7 Days Qty: 14 RF: 0 ipratropium-albuterol 0.5 mg-3 mg(2.5 mg base)/3 mL solution for nebulization 3 ml INHALATION Q6H PRN (Reason: shortness of breath or wheezing) Qty: 90 RF: 0 Continued montelukast [Singulair] 10 mg tablet 10 mg PO DAILY RF: 0 methimazole 5 mg tablet 5 mg PO DAILY RF: 0 colestipol 1 gram tablet 1 gm PO DAILY RF: 0 Symbicort 80-4.5 mcg/actuation HFA aerosol inhaler 2 puff INHALATION BID RF: 0 cilostazol 50 mg tablet 50 mg PO BID RF: 0 fexofenadine 60 mg Tablet 60 mg PO BID PRN (Reason: Allergy Symptoms) RF: 0 amlodipine 10 mg Tablet 10 mg PO DAILY RF: 0 omeprazole 20 mg Capsule,Delayed Release(Dr/Ec) 20 mg PO DAILY RF: 0 albuterol sulfate 90 mcg/actuation Hfa Aerosol Inhaler 1 inh INHALATION QID PRN (Reason: Shortness Of Breath) RF: 0 Changed lisinopril 40 mg tablet 20 mg PO DAILY Qty: 0 RF: 0 Discharge Orders: Discharge Order (Routine); Ordered 08/05/20 Ordered By: Roma Borrero Other Ambulatory Orders: DME: Nebulizer with Neb Kit (Order) Location: None Selected Ordered By: Roma Borrero DME: Oxygen (Order) Location: None Selected Ordered By: Roma Borrero DME: Oxygen (Order) Location: None Selected Ordered By: Roma Borrero Referrals: Roge Escobar, [Primary Care Provider] - 4-7 days (Post hospital discharge follow up. Treated for COVID-19 pneumonia and UTI. ) Discharge Diet: Advance as tolerated and Cardiac Discharge Activity: Increase activity as tolerated and Oxygen as instructed Activity Restrictions/Additional Instructions: -Please continue to monitor your symptoms at home particularly with respect to your oxygen levels and temperature. Please seek medical attention immediately should you notice worsening symptoms, persistently low oxygen levels, fever -Please follow-up with your primary care provider -Please note that she will be on several days of antibiotics and steroids and you have not been started on a blood thinner due to noted irregular heart rate. -Please continue proper and frequent hand hygiene, mask wearing and social distancing particularly while out in the community Discharge Attestations Time Spent in Discharge Care*: greater than 30 min Specific Discharge Activities: Specific discharge activities: educating patient, discussing with telephonic nurse case manager/social workers/dc planners, documenting/other paperwork and evaluating patient/reviewing data Status at Discharge: Cognitive status at discharge: cognitively intact , Behavioral status at discharge: cooperative and independent in ADL's , Functional status at discharge: independent ambulation Overall status at discharge: patient is progressing back to baseline Quality Metrics Clinical Quality Measures During this hospital stay, did patient experience: None Coding Level of Care Code Acute [employer] [place] for [facility] Fwd Exam Comprehensive Diagnoses Pneumonia due to 2019 novel coronavirus U07.1; J12.89 Atrial fibrillation, new onset I48.91 Dehydration E86.0 Hypokalemia E87.6 CHARLY (acute kidney injury) N17.9 UTI (urinary tract infection) N30.00 Hematuria presence: without hematuria Urinary tract infection type: acute cystitis Hypertension I10 Hypertension type: essential hypertension Hypocalcemia E83.51 Hyponatremia E87.1
[2020-08-05] MEDS: lisinopril 20 mg Tablet 40 MG PO (10:49)
--- NOTE | 2020-08-08 16:31 | PC.SOCIAL ---
We spoke about signs and symptoms to watch for such as; blue lips or face, fever of 104 or higher, trouble breathing or catching breath, chest pain lasting longer than 5 minute, confusion or trouble waking up. We also spoke about ways to improve the immune system, these included; eating and drinking well, eating fruits and vegetables, lean meat, low fat dairy products, keeping up with immunizations such as flu/pneumonia/shingles shots, going to all appointments and follow ups, lessening and stress. We also spoke about ways to stop or prevent the spread of the COVID 19. These included; social distancing at all times, washing hands longer than 20 seconds with a good lather, sanitizing surfaces in home and in vehicle, masking up when possible and washing any cloth masks after use and allow them to dry completely before next use, sneezing or coughing into arm, restricting company or going out in public. We spoke a little about the benefits of plasma donation
--- NOTE | 2020-08-08 16:53 | PC.SOCIAL ---
Spoke with the patient and her on the phone about the discharge information they received. The patient had many questions about the medications she was now on and made a statement about stopping them. I informed her that I would have a nurse call and explain to her why she is on the. We also spoke about signs and symptoms to watch for such as; blue lips or face, fever of 104 or higher, trouble breathing or catching breath, chest pain lasting longer than 5 minute, confusion or trouble waking up. We also spoke about ways to improve the immune system, these included; eating and drinking well, eating fruits and vegetables, lean meat, low fat dairy products, keeping up with immunizations such as flu/pneumonia/shingles shots, going to all appointments and follow ups, lessening and stress. We also spoke about ways to stop or prevent the spread of the COVID 19. These included; social distancing at all times, washing hands longer than 20 seconds with a good lather, sanitizing surfaces in home and in vehicle, masking up when possible and washing any cloth masks after use and allow them to dry completely before next use, sneezing or coughing into arm, restricting company or going out in public. We spoke a little about the benefits of plasma donation.
--- NOTE | 2020-08-08 17:08 | PC.SOCIAL ---
Discussed in detail all new medications and pt verbalized understanding and she did not decrease Lisinopril to 20mg she will do this and keep track of BP and HR twice a day and update provider if BP continues to be low. She had no other questions.
== END 2020-08-05 13:12 | disposition home or self-care (01) | DRG 177 ==
LOC: ER 19:12 → ICU 22:05
PROVIDERS: Family Medicine; Student in an Organized Health Care Education/Training Program; Admitting Provider Internal Medicine; PCP Internal Medicine; Visit Provider Family Medicine
DX: U07.1 COVID-19 (principal); J12.89 Other viral pneumonia; J96.01 Acute respiratory failure with hypoxia; N17.9 Acute kidney failure, unspecified; E87.1 Hypo-osmolality and hyponatremia; E87.2 Acidosis; N30.00 Acute cystitis without hematuria; I95.9 Hypotension, unspecified; I48.91 Unspecified atrial fibrillation; E87.6 Hypokalemia; I73.9 Peripheral vascular disease, unspecified; J44.9 Chronic obstructive pulmonary disease, unspecified; I12.9 Hypertensive chronic kidney disease with stage 1 through stage 4 chronic kidney disease, or unspecified chronic kidney disease; N18.31 Chronic kidney disease, stage 3a; K58.0 Irritable bowel syndrome with diarrhea; F17.210 Nicotine dependence, cigarettes, uncomplicated; E86.0 Dehydration; E05.90 Thyrotoxicosis, unspecified without thyrotoxic crisis or storm; Z79.51 Long term (current) use of inhaled steroids
CPT/HCPCS: 12345; 36415; 70450; 71045; 80048; 80053; 81001; 82009; 82550; 82728; 83605; 83615; 83735; 83880; 84100; 84132; 84145; 84439; 84443; 84484; 85025; 85049; 85378; 85384; 85730; 86140; 87040; 87070; 87205; 87426; 87641; 87804; 93306; 93970; 94640; 96375; 99284; J0610; J0696; J1644; J2250; J2405; J3480; J3490; J3535; J7030; J8540

== ENCOUNTER 2021-01-24 09:59 | Outpatient (CLI) | payer MEDICARE, OTHER, SELFPAY ==
--- NOTE | 2021-01-24 10:07 | MM_ITS ---
WS: [id number] BILATERAL SCREENING DIGITAL MAMMOGRAM WITH CAD HISTORY: SCREENING COMPARISON: 01/19/2020 and 09/07/2019 Bilateral CC and MLO views submitted. Computer aided detection analyzed. Breast composition: There are scattered areas of fibroglandular density. No suspicious masses, microc alcifications or architectural distortion. MM/[place] [id number] IMPRESSION: BI-RADS: 1-Negative FOLLOW UP: 1 Year Follow-up
== END 2021-01-24 10:00 | disposition home or self-care (01) ==
LOC: RADSHAW 10:03
PROVIDERS: PCP Internal Medicine; Visit Provider Internal Medicine
DX: Z12.31 Encounter for screening mammogram for malignant neoplasm of breast (principal)
CPT/HCPCS: 77067

== ENCOUNTER 2022-02-28 12:08 | Outpatient (CLI) | payer MEDICARE, OTHER, SELFPAY ==
--- NOTE | 2022-02-28 12:15 | MM_ITS ---
WS: [id number] BILATERAL SCREENING DIGITAL BREAST TOMOSYNTHESIS MAMMOGRAM WITH CAD HISTORY: SCREENING COMPARISON: 01/24/2021, 01/19/2020 and 09/07/2019 Bilateral CC and MLO views with tomosynthesis and synthetic mammography submitted. Computer aided det ection analyzed. Breast composition: There are scattered areas of fibroglandular density. No suspicious masses, microc alcifications or architectural distortion. Stable nodules in the anterior LEFT breast over multiple p rior years. No suspicious mass or calcification. MM/[place] [id number] IMPRESSION: BI-RADS: 2-Benign FOLLOW UP: 1 Year Follow-up
== END 2022-02-28 12:09 | disposition home or self-care (01) ==
LOC: RAD 12:11
PROVIDERS: PCP Internal Medicine; Visit Provider Internal Medicine
DX: Z12.31 Encounter for screening mammogram for malignant neoplasm of breast (principal)
CPT/HCPCS: 77063; 77067

== ENCOUNTER → 2022-06-01 10:19 | Outpatient (BNVA) | payer MEDICARE, OTHER, SELFPAY | PROVIDERS: PCP Internal Medicine; Visit Provider Internal Medicine | DX: I73.9 Peripheral vascular disease, unspecified (principal); I10 Essential (primary) hypertension; Z87.891 Personal history of nicotine dependence | CPT/HCPCS: 99214 ==

== ENCOUNTER 2023-03-05 09:53 | Outpatient (CLI) | payer MEDICARE, OTHER, SELFPAY ==
--- NOTE | 2023-03-05 10:10 | MM_ITS ---
WS: [id number] VIEWS: MLO and CC views both breasts. 3D digital tomosynthesis is also included in this exam. Comparison made with prior exam of .. Findings: There was no sign of mass, architectural distortion or suspicious calcification in either breast. Th ere are scattered areas of fibroglandular density MM/[place] [id number] Impression: BI-RADS: 2-Benign benign findings FOLLOW-UP: 1 Year Follow-up This mammogram was also analyzed by the Computer Aided Detection System R2 Imag e Clock Maker.
== END 2023-03-05 09:54 | disposition home or self-care (01) ==
PROVIDERS: PCP Internal Medicine; Visit Provider Internal Medicine
DX: Z12.31 Encounter for screening mammogram for malignant neoplasm of breast (principal)
CPT/HCPCS: 77063; 77067

== ENCOUNTER → 2023-05-31 09:32 | Outpatient (BNVA) | payer MEDICARE, OTHER, SELFPAY | PROVIDERS: PCP Internal Medicine; Visit Provider Internal Medicine | DX: I73.9 Peripheral vascular disease, unspecified (principal); I10 Essential (primary) hypertension; I35.0 Nonrheumatic aortic (valve) stenosis; Z87.891 Personal history of nicotine dependence | CPT/HCPCS: 99214 ==

== ENCOUNTER 2023-06-17 09:06 | Outpatient (CLI) | payer MEDICARE, OTHER, SELFPAY ==
--- NOTE | 2023-06-17 09:30 | USCV_ITS ---
Emili Bueno Age: 77 Gender: F : 1945 Exam Date: 06/17/2023 09:48 Ordering Phys: Efren Alejandro M.D ([email or web address]) Technologist: CT Exam Location: [facility] [place] Indication: ao stenosis BP: 140 / 87 HR: 72 Rhythm: Sinus Technical Quality: Adequate MEASUREMENTS (Male / Female) Normal Values 2D ECHO LV Chamber Size 5.3 cm RV Chamber Size 3.3 cm LVOT Diameter 2.1 cm LV Ejection Fraction MOD 2C 67.3 % LV Ejection Fraction 2C AL 65.5 % LA Diameter 4.0 cm LA Width 3.3 cm LA Height 5.2 cm RA Width 3.3 cm RA Height 4.9 cm Aorta at Sinotubular Diameter 2.4 cm IVC Diameter 2.0 cm M-MODE Aortic Annulus Diameter 2.4 cm LA Ao Ratio MM 2.0 MV E Point Septal Separation 0.7 cm DOPPLER AV Peak Velocity 264.0 cm/s LVOT Peak Velocity 114.0 cm/s AV Area Cont Eq vti 1.6 cm squared AV Area Cont Eq pk 1.5 cm squared MV Peak Velocity 90.0 cm/s MV Area PHT 3.2 cm squared Mitral E to A Ratio 0.9 MV E' Velocity 44.5 cm/s Mitral E to MV E' Ratio 13.9 Mitral E to LV E' Lateral Ratio 16.7 Mitral E to LV E' Septal Ratio 12.1 TR Peak Velocity 63.0 cm/s TR Peak Gradient 1.6 mmHg TV Peak E Velocity 84.0 cm/s Right Atrial Pressure 3.0 mmHg Pulmonary Artery Systolic Pressu 4.6 mmHg PV Peak Velocity 137.0 cm/s FINDINGS Left Ventricle Left ventricle is normal in size. LV systolic function is normal with EF of 55-60%. No regional wall motion abnormalities are seen. Grade 1 diastolic dysfunction Right Ventricle Normal in size and function Right Atrium Normal in size Left Atrium Normal in size Mitral Valve Mitral valve is thickened. Mild mitral regurgitation Aortic Valve Aortic valve is thickened and calcified. Mild aortic stenosis with aortic valve area of 1.57cm2 and mean gradient across aortic valve of 14 mmHg. Mild aortic regurgitation Tricuspid Valve Mild tricuspid regurgitation. Insufficient TR jet to calculate RVSP. Pulmonic Valve Not well visualized Pericardium Normal Aorta Normal in size IVC Appears to be normal CONCLUSIONS LV systolic function is normal with EF of 50 to 55%. Grade 1 diastolic dysfunction Mild mitral regurgitation Mild aortic stenosis Mild aortic regurgitation Mild tricuspid regurgitation Compared to prior echocardiogram from 2019, no significant changes are seen Efren Alejandro MD (Electronically Signed) Final Date: 29 June 2023 14:10 S
== END 2023-06-17 09:07 | disposition home or self-care (01) ==
PROVIDERS: PCP Internal Medicine; Visit Provider Internal Medicine
DX: I35.0 Nonrheumatic aortic (valve) stenosis (principal); I34.0 Nonrheumatic mitral (valve) insufficiency; I35.2 Nonrheumatic aortic (valve) stenosis with insufficiency; I07.1 Rheumatic tricuspid insufficiency
CPT/HCPCS: 93306

== ENCOUNTER → 2023-10-10 14:37 | Outpatient (BNVA) | payer MEDICARE, OTHER, SELFPAY | PROVIDERS: PCP Internal Medicine; Referring Provider Internal Medicine; Visit Provider Internal Medicine Pulmonary Disease | DX: J44.9 Chronic obstructive pulmonary disease, unspecified (principal); Z79.899 Other long term (current) drug therapy; Z87.891 Personal history of nicotine dependence; Z12.2 Encounter for screening for malignant neoplasm of respiratory organs; J45.909 Unspecified asthma, uncomplicated; R91.1 Solitary pulmonary nodule | CPT/HCPCS: 36415; 80048; 82785; 85007; 85027; 86003; 99204 ==

== ENCOUNTER 2023-10-18 13:15 | Outpatient (CLI) | payer MEDICARE, OTHER, SELFPAY ==
--- NOTE | 2023-10-18 13:15 | CT_ITS ---
WS: [id number] LDCT LUNG CANCER SCREENING TECHNIQUE: Noncontrast CT of the chest with coronal and sagittal reformatted images. CLINICAL INFORMATION: Cancer Screen COMPARISON: 2019 DLP: 55.91 mGy.cm DIvol: Mean CTDIvol: 0.90 (mGy) All CT scans at [facility] use at least one of these dose optimization techniques: automat ed exposure control; mA and/or kV adjustment per patient size (includes targeted exams where dose is matched to clinical indication); or iterative reconstruction. FINDINGS: 11 mm LEFT lower lobe nodule adjacent to the diaphragm increased in size since 2019 where it measur ed approximately 7 mm. This can be further evaluated with PET/CT. Moderate chronic emphysematous rivas ges. A few calcified granulomas. Subsegmental atelectasis in both lower lobes. Subsegmental ectasis i n the lingula. Nodular pleural thickening along the LEFT fissure. Aortic calcification. Normal caliber thoracic aorta. No mediastinal or hilar lymphadenopathy. No axil jhonny lymphadenopathy. Cholecystectomy. Adrenal glands are normal. Normal GE junction. Mild thoracic k yphosis. IMPRESSION: Solid 11 mm LEFT lower lobe nodule adjacent to the diaphragm increased in size since 2019 where it me asured approximately 7 mm. This can be further evaluated with PET/CT CT/CT lung screening [id number] LUNG-RADS: 4B-Suspicious FOLLOW UP: PET/CT recommended
== END 2023-10-18 13:16 | disposition home or self-care (01) ==
LOC: RAD 13:16
PROVIDERS: PCP Internal Medicine; Visit Provider Internal Medicine Pulmonary Disease
DX: Z87.891 Personal history of nicotine dependence (principal); R91.1 Solitary pulmonary nodule
CPT/HCPCS: 71271

== ENCOUNTER 2023-10-29 08:07 | Outpatient (CLI) | payer MEDICARE, OTHER, SELFPAY ==
[2023-10-29 08:28] VITALS: PULSE 70; RESP 18; O2SAT 94
[2023-10-29] MEDS: albuterol 2.5 mg/3 mL Neb INHALATION (08:28)
[2023-10-29 08:33] VITALS: PULSE 78
== END 2023-10-29 08:08 | disposition home or self-care (01) ==
PROVIDERS: PCP Internal Medicine; Visit Provider Internal Medicine Pulmonary Disease
DX: J44.9 Chronic obstructive pulmonary disease, unspecified (principal); Z87.891 Personal history of nicotine dependence; R94.2 Abnormal results of pulmonary function studies
CPT/HCPCS: 94060; 94618; 94726; 94729; J7613

== ENCOUNTER → 2023-11-21 15:08 | Outpatient (BNVA) | payer MEDICARE, OTHER, SELFPAY | PROVIDERS: PCP Internal Medicine; Visit Provider Internal Medicine Pulmonary Disease | DX: J44.89 Other specified chronic obstructive pulmonary disease (principal); Z12.2 Encounter for screening for malignant neoplasm of respiratory organs; Z99.81 Dependence on supplemental oxygen | CPT/HCPCS: 99214 ==

== ENCOUNTER 2023-11-26 11:59 | Outpatient (CLI) | payer MEDICARE, OTHER, SELFPAY ==
--- NOTE | 2023-11-26 13:00 | PETR_ITS ---
PROCEDURE INFORMATION: Exam: PET/CT Skull Base to Mid-thigh Exam date and time: 11/26/2023 1:07 PM Age: 78 years old Clinical indication: Abnormal findings; Solid 11 mm left lower lobe nodule adjacent to the diaphragm increased in size since 2019 where it measured approximately 7 mm. This can be further evaluated with pet/ct; Additional info: Pulmonary nodule LABS AND CLINICAL REPORTS: Glucose: 109 mg/dl Treatment strategy for malignancy (PET staging): Initial Staging (PI) TECHNIQUE: Imaging protocol: Following at least four-hour fasting and following the injection of radiopharmaceutical, low dose CT images were obtained. Then, PET images were obtained. Attenuation corrected images were constructed using the CT scan. Fused images of PET and CT were reviewed. The standardized uptake values (SUV) reported below are maximum values within a region of interest, expressed in gm/ml. Exam includes orbital meatal line to mid-thigh. Radiopharmaceutical: 14 mCi F-18 FDG (Fluorodeoxyglucose), IV. Time of imaging post radiopharmaceutical administration: 1 hour Injection site: Right antecubital vein COMPARISON: CT chest low dose lung cancer screening 10/18/2023, 10/20/2019, 02/27/2019 FINDINGS: Brain: Visualized brain has normal physiologic uptake. Pharynx: No abnormal uptake. Larynx: No abnormal uptake. Thyroid: No abnormal uptake. Stable partially calcified and noncalcified small bilateral nodules measuring up to 1 cm suggestive of benign findings. Lungs, pleura and trachea: No abnormal uptake. 11 mm left lower lobe nodule on series 3, image 116 is not FDG avid (0.8 SUV) suggestive of benign granuloma. It was present on prior exams measuring 7 mm in 2019 and 5 mm in 2018. Heart: Normal physiologic uptake. There is no cardiomegaly. Mild coronary artery calcification is present. There is no pericardial effusion. Mediastinal space: No abnormal uptake. Liver: No abnormal uptake. Gallbladder and bile ducts: No abnormal uptake. Status post cholecystectomy. Pancreas: No abnormal uptake. Spleen: No abnormal uptake. No splenomegaly Adrenal glands: No abnormal uptake. No nodules. Kidneys and ureters: Normal physiologic uptake. No hydronephrosis. Stomach and bowel: No abnormal uptake. Intraperitoneal and retroperitoneal spaces: No abnormal uptake. No ascites. Urinary bladder: Normal physiologic uptake. Reproductive: No abnormal uptake. The uterus is absent post surgically. Vasculature: No abnormal uptake. Lymph nodes: No abnormal uptake. No lymphadenopathy in the head, neck, chest, abdomen, pelvis, and extremities. There is sequela of exposure to granulomatous disease with calcified granulomas within normal size bilateral hilar and right subcarinal lymph nodes. Bones/joints: No abnormal uptake in the visualized axial and appendicular skeleton. Soft tissues: No abnormal uptake in the visualized head, neck, chest, abdomen, pelvis, and extremities. PET/PET skulltothi INITIAL [id number] IMPRESSION: No abnormal radiotracer uptake. Specifically, 11 mm lung nodule in the left lower lobe is not FDG avid suggestive of benign granuloma.
== END 2023-11-26 12:00 | disposition home or self-care (01) ==
LOC: RAD 11:59
PROVIDERS: PCP Internal Medicine; Visit Provider Internal Medicine Pulmonary Disease
DX: R91.1 Solitary pulmonary nodule (principal)
CPT/HCPCS: 78815; A9552

== ENCOUNTER → 2024-02-10 12:28 | Outpatient (BNVA) | payer MEDICARE, OTHER, SELFPAY | PROVIDERS: PCP Internal Medicine; Visit Provider Internal Medicine | DX: I73.9 Peripheral vascular disease, unspecified (principal); I10 Essential (primary) hypertension; I35.0 Nonrheumatic aortic (valve) stenosis; Z87.891 Personal history of nicotine dependence | CPT/HCPCS: 99214 ==

== ENCOUNTER 2024-03-06 10:54 | Outpatient (CLI) | payer MEDICARE, OTHER, SELFPAY ==
--- NOTE | 2024-03-06 11:01 | MM_ITS ---
WS: [id number] BILATERAL SCREENING DIGITAL TOMOSYNTHESIS MAMMOGRAM WITH CAD HISTORY: SCREENING COMPARISON: 03/05/2023, 02/28/2022 Bilateral CC and MLO views with tomosynthesis and synthetic mammography submitted. Computer aided det ection analyzed. Breast composition: There are scattered areas of fibroglandular density. No suspicious masses, microc alcifications or architectural distortion. Asymmetry subareolar region LEFT breast is stable on multi ple prior examinations. MM/[place] [id number] IMPRESSION: BI-RADS: 2-Benign FOLLOW UP: 1 Year Follow-up
== END 2024-03-06 10:55 | disposition home or self-care (01) ==
LOC: RAD 10:54
PROVIDERS: PCP Internal Medicine; Visit Provider Internal Medicine
DX: R92.323 Mammographic fibroglandular density, bilateral breasts (principal); R92.8 Other abnormal and inconclusive findings on diagnostic imaging of breast
CPT/HCPCS: 77063; 77067

== ENCOUNTER → 2024-05-22 09:09 | Outpatient (BNVA) | payer MEDICARE, OTHER, SELFPAY | PROVIDERS: PCP Internal Medicine; Visit Provider Internal Medicine Critical Care Medicine | DX: R06.09 Other forms of dyspnea; J44.89 Other specified chronic obstructive pulmonary disease; Z12.2 Encounter for screening for malignant neoplasm of respiratory organs; R91.1 Solitary pulmonary nodule; F17.211 Nicotine dependence, cigarettes, in remission; Z71.89 Other specified counseling | CPT/HCPCS: 99214 ==

== ENCOUNTER 2024-06-19 10:47 | Outpatient (CLI) | payer MEDICARE, OTHER, SELFPAY ==
--- NOTE | 2024-06-19 15:00 | CT_ITS ---
WS: [id number] CT chest wo con [id number] HISTORY: nodule follow up TECHNIQUE: Axial imaging performed through the thorax. Coronal and sagittal reformats are submitted. All CT scans at [facility] use at least one of these dose optimization techniques: automated exposure control; mA and/or kV adjustment per patient size (includes targeted exams where dose is mat ched to clinical indication); or iterative reconstruction. CONTRAST: None DLP: 295.02 mGy.cm COMPARISON: 10/18/2023, 02/27/2019, 10/20/2019 Lungs and central airway: Chronic emphysema. Hyperinflated lungs. Reidentified is a well-circumscribe d, noncalcified nodule at the LEFT lung base measuring 9 mm. Nodule similar size to the prior study o f 10/18/2023 but has increased in size since 2019. Mild dependent changes with areas of scarring and a telectasis at the lung bases. RIGHT lower lobe benign granuloma. No new mass or nodule. No pneumonia. Pleura: No pleural effusions. Heart and pericardium: Normal size heart with no pericardial effusion. Mediastinum and gonsalo: No adenopathy identified on this unenhanced exam. Small enlarging lymph nodes w ould be easily obscured without IV contrast. Vessels: Moderate atherosclerosis aorta. No aneurysm. Pulmonary artery is top normal size measuring 3 .0 cm. Chest wall and lower neck: Calcifications within each thyroid lobe. Thyroid is slightly enlarged and extends substernal. Probably representing a goiter. Upper abdomen: Small hiatal hernia. LEFT adrenal nodule is poorly visualized today. Osseous structures: Mild increase in thoracic kyphosis. CT/CT chest wo con [id number] IMPRESSION: 1. Stable noncalcified 9 mm pulmonary nodule at the LEFT lung base since 2023. Slight progression in size since 2019. Consider additional 12-month chest CT follow-up. 2. Chronic emphysema. 3. No new mass or nodule.
== END 2024-06-19 10:48 | disposition home or self-care (01) ==
LOC: RAD 10:47
PROVIDERS: PCP Internal Medicine; Visit Provider Internal Medicine Critical Care Medicine
DX: R91.1 Solitary pulmonary nodule (principal); J43.8 Other emphysema
CPT/HCPCS: 71250

== ENCOUNTER 2025-01-11 09:07 | Outpatient (CLI) | payer MEDICARE, OTHER, SELFPAY ==
--- NOTE | 2025-01-11 09:15 | USCV_ITS ---
Emili Bueno Age: 79 Gender: F : 1945 Exam Date: 01/11/2025 09:18 Ordering Phys: Efren Alejandro M.D ([email or web address]) Technologist: RIANA [place] [facility] [place]ication: Aortic Stenosis BP: 173 / 68 HR: 72 Rhythm: Sinus Technical Quality: Adequate MEASUREMENTS (Male / Female) Normal Values 2D ECHO LV Diastolic Diameter PLAX 5.5 cm 4.2 - 5.9 / 3.9 - 5.3 cm IVS Diastolic Thickness 1.2 cm 0.6 - 1.0 / 0.6 - 0.9 cm IVS Systolic Thickness 1.6 cm LVPW Diastolic Thickness 1.1 cm 0.6 - 1.0 / 0.6 - 0.9 cm LVPW Systolic Thickness 1.3 cm LVOT Diameter 2.0 cm LV Ejection Fraction 2D Teich 55.8 % LV Ejection Fraction MOD 4C 49.1 % LV Ejection Fraction MOD 2C 61.0 % LV Ejection Fraction 2C AL 62.6 % LA Diameter 3.5 cm RA Systolic Volume 4C AL 37.4 ml RA Systolic Volume 4C MOD 36.0 ml LA Sys Volume AL 46.9 cm cubed LA Sys Volume Index AL 26.0 cm cubed/m squared Aorta at Sinotubular Diameter 2.3 cm IVC Diameter 2.2 cm M-MODE LA Ao Ratio MM 1.7 AV Cusp Separation MM 1.2 cm DOPPLER AV Peak Velocity 190.0 cm/s LVOT Peak Velocity 103.0 cm/s AV Area Cont Eq vti 1.8 cm squared AV Area Cont Eq pk 1.6 cm squared MV Peak Velocity 124.7 cm/s MV Area PHT 3.1 cm squared Mitral E to A Ratio 0.6 TV Peak Velocity 230.0 cm/s TR Peak Velocity 302.0 cm/s TR Peak Gradient 36.5 mmHg TV Peak E Velocity 86.0 cm/s PV Peak Velocity 124.0 cm/s FINDINGS Left Ventricle Normal left ventricular size and systolic function, EF 62%.no regional wall motion abnormalities. Mild left ventricular hypertrophy. Grade I/IV diastolic dysfunction (abnormal relaxation filling pattern), normal to mildly elevated filling pressures. Right Ventricle Normal right ventricular size and systolic function. Right Atrium Mildly increased right atrial size. Left Atrium Mildly increased left atrial size. Mitral Valve Mild mitral valve regurgitation. Aortic Valve Thickened aortic valve. Aortic valve sclerosis. Tricuspid Valve Trace tricuspid valve regurgitation. Estimated pulmonary artery peak systolic pressure of 40 mmHg Pulmonic Valve No gross abnormalities noted Pericardium No pericardial effusion. Aorta Normal aortic annulus size. IVC Normal inferior vena cava. CONCLUSIONS Normal left ventricular size and systolic function, EF 62%.no regional wall motion abnormalities. Mild left ventricular hypertrophy. Type I diastolic dysfunction. Features of aortic valve sclerosis. Mild biatrial enlargement. Mild mitral valve regurgitation. Trace tricuspid valve regurgitation. Estimated pulmonary artery peak systolic pressure of 40 mmHg. There is no pericardial effusion. There are no intracardiac masses. Compared to the study from 06/17/2023, there may not be a significant change Dr Melissa Ortiz MD [facility] (Electronically Signed) Final Date: 12 January 2025 08:13 S
== END 2025-01-11 09:08 | disposition home or self-care (01) ==
PROVIDERS: PCP Electrodiagnostic Medicine; Visit Provider Internal Medicine
DX: I35.0 Nonrheumatic aortic (valve) stenosis (principal); I51.7 Cardiomegaly; R93.1 Abnormal findings on diagnostic imaging of heart and coronary circulation; I34.0 Nonrheumatic mitral (valve) insufficiency
CPT/HCPCS: 93306

== ENCOUNTER → 2025-02-09 12:55 | Outpatient (BNVA) | payer MEDICARE, OTHER, SELFPAY | PROVIDERS: PCP Electrodiagnostic Medicine; Visit Provider Internal Medicine | DX: I73.9 Peripheral vascular disease, unspecified (principal); I10 Essential (primary) hypertension; I35.0 Nonrheumatic aortic (valve) stenosis; Z87.891 Personal history of nicotine dependence | CPT/HCPCS: 99213 ==

== ENCOUNTER 2025-03-12 07:55 | Outpatient (CLI) | payer MEDICARE, OTHER, SELFPAY ==
--- NOTE | 2025-03-12 07:57 | MM_ITS ---
WS: [id number] BILATERAL SCREENING DIGITAL TOMOSYNTHESIS MAMMOGRAM WITH CAD HISTORY: SCREENING COMPARISON: 03/06/2024, 03/05/2023 Bilateral CC and MLO views with tomosynthesis and synthetic mammography submitted. Computer aided detection analyzed. Breast composition: There are scattered areas of fibroglandular density. No suspicious masses, microcalcifications or architectural distortion. MM/MM scr BI tomosynthesis [id number] IMPRESSION: BI-RADS: 1 - Negative. FOLLOW UP: 1 Year Follow-up
== END 2025-03-12 07:56 | disposition home or self-care (01) ==
PROVIDERS: PCP Electrodiagnostic Medicine; Visit Provider Electrodiagnostic Medicine
DX: Z12.31 Encounter for screening mammogram for malignant neoplasm of breast (principal); R92.323 Mammographic fibroglandular density, bilateral breasts
CPT/HCPCS: 77063; 77067